=== PATIENT | female | born 1970 | race Caucasian/White ===

== ENCOUNTER 2017-03-19 20:23 | Emergency (ER) | payer BC ==
[2017-03-19 21:13] VITALS: BP 132/68
[2017-03-19] MEDS ORDERED: Ibuprofen TAB* 600 MG PO ONE (21:29)
--- NOTE | 2017-03-19 23:06 | UC ---
Back Pain HPI - HPI Summary HPI Summary: Lifted trash at home tonight and twisted wrong and has left upper back pain. Did not hear a snap or crack. Hx prior wrist fracture. No SOB, no hemoptysis. Severe pain. - History of Current Complaint Chief Complaint: UCBackPain Stated Complaint: BACK PAIN Time Seen by Provider: 03/19/17 23:06 Hx Obtained From: Patient Onset/Duration: Sudden Onset, Lasting Hours, Still Present Timing: Constant Severity Initially: Severe Severity Currently: Severe Pain Intensity: 8 Pain Scale Used: 0-10 Numeric Back Pain: Is Discrete @ - left post ribs, upper Character: Sharp Aggravating: Movement Alleviating: Nothing Associated Signs And Symptoms: Negative: Bruising, Fever - Allergies/Home Medications Allergies/Adverse Reactions: Allergies Allergy/AdvReac Type Severity Reaction Status Date / Time Amoxicillin Allergy Intermediate RASH Verified 03/19/17 21:06 SWELLING Morphine and Related AdvReac Hallucinati Verified 03/19/17 21:06 ons Home Medications: Home Medications Amphetamine-Dextroamphetamine [Adderall 30 mg-] 1 tab PO DAILY 03/19/17 [ History Confirmed 03/19/17] PMH/Surg Hx/FS Hx/Imm Hx Previously Healthy: Yes - Surgical History Surgical History: Yes Surgery Procedure, Year, and Place: LT SHOULDER SURGERY X3. APPENDECTOMY. HYSTERECTOMY - Family History Known Family History: Positive: Hypertension - Social History Occupation: Employed Full-time Alcohol Use: Occasionally Substance Use Type: None Smoking Status (MU): Light Every Day Tobacco Smoker Amount Used/How Often: 1/2 pack/day Review of Systems Constitutional: Negative Skin: Negative Eyes: Negative ENT: Negative Respiratory: Negative Cardiovascular: Negative Gastrointestinal: Negative Genitourinary: Negative Motor: Negative Neurovascular: Negative Musculoskeletal: Arthralgia Neurological: Negative Psychological: Negative All Other Systems Reviewed And Are Negative: Yes Physical Exam Triage Information Reviewed: Yes Appearance: Well-Appearing, Well-Nourished, Pain Distress Vital Signs: Initial Vital Signs Temp 98.4 F 03/19/17 21:08 Pulse 73 03/19/17 21:08 Resp 16 03/19/17 21:08 BP 132/68 03/19/17 21:08 Pulse Ox 100 03/19/17 21:08 Vital Signs Reviewed: Yes Eyes: Positive: Conjunctiva Clear ENT: Positive: Hearing grossly normal. Negative: Muffled/hoarse voice Neck: Positive: Supple, Nontender, No Lymphadenopathy Respiratory: Positive: Lungs clear, Normal breath sounds, No respiratory distress Cardiovascular: Positive: RRR, No Murmur, Pulses Normal, Brisk Capillary Refill Musculoskeletal: Positive: Strength Intact, ROM Intact, Other: - pain left post ribs inf to scapular Neurological Exam: Normal Psychological Exam: Normal Skin Exam: Normal Back Pain Course/Dx - Course Course Of Treatment: xray-unofficial reading-no rib fx. CXR neg - Differential Dx/Diagnosis Differential Diagnosis/HQI/PQRI: Fracture, Strain, Sprain Provider Diagnoses: left post rib contusion Discharge - Discharge Plan Condition: Stable Disposition: HOME Prescriptions: Cyclobenzaprine TAB* [Flexeril 10 MG TAB*] 10 mg PO TID PRN #20 tab PRN Reason: Pain traMADol TAB* [Ultram*] 50 mg PO Q6HR PRN #10 tab MDD 4 PRN Reason: Pain Patient Education Materials: Rib Contusion (ED) Forms: *Work Release Referrals: Rissa Harley NP [Primary Care Provider] -
[2017-03-19] MEDS ORDERED: Cyclobenzaprine TAB* 10 MG PO ONE (23:12)
[2017-03-19] MEDS ORDERED: traMADol TAB* 50 MG PO ONE (23:12)
--- NOTE | 2017-03-20 07:31 | RAD ---
INDICATION: Left posterior paraspinal rib pain after twisting injury COMPARISON: None. TECHNIQUE: 7 views of the left ribs as well as AP views of the chest were obtained. FINDINGS: No fracture or significant focal osseous abnormality is seen. No pneumothorax is apparent. IMPRESSION: NO EVIDENCE FOR FRACTURE, IF THE PATIENT'S SYMPTOMS PERSIST RECOMMEND FOLLOW-UP IMAGING.
== END 2017-03-19 23:59 | disposition home or self-care (01) ==
LOC: UCEAST 20:23
DX: S20.212A Contusion of left front wall of thorax, initial encounter (principal); X50.1XXA Overexertion from prolonged static or awkward postures, initial encounter; F17.210 Nicotine dependence, cigarettes, uncomplicated; Z88.3 Allergy status to other anti-infective agents; Z88.5 Allergy status to narcotic agent
CPT/HCPCS: 99212; A9270-GY; G0463

== ENCOUNTER 2017-12-17 17:21 | Emergency (ER) | payer BC ==
--- NOTE | 2017-12-17 18:40 | RAD ---
INDICATION: Right upper quadrant pain COMPARISON: February 22, 2014 TECHNIQUE: Longitudinal and transverse scans of the right upper quadrant were obtained. Doppler interrogation of the hepatic and portal venous system was performed. FINDINGS: Liver: The liver is normal in size and echogenicity. There are no focal masses. The liver measures 12.9 cm in cephalocaudal dimension. Vessels: There is normal hepatic and portal venous flow. Bile ducts: There is no evidence of intrahepatic or extrahepatic ductal dilatation. The common duct measures 0.3 cm. Gallbladder: The gallbladder wall appears thickened. This may be related to fact that the patient was not n.p.o. or this could be related to chronic gallbladder changes. There is no pericholecystic fluid. Pancreas: The visualized pancreas appears normal Right kidney: The right kidney is normal in size and echogenicity. There are no masses or calculi. There is no evidence of hydronephrosis. The right kidney measures 9.4 x 3.6 x 4.1 cm. IVC and aorta: The aorta and superior vena cava appear normal. Fluid: There is no ascites. Other: None. IMPRESSION: CONTRACTED GALLBLADDER. CONSIDER FOLLOW-UP IMAGING WHEN THE PATIENT IS N.P.O.
[2017-12-17 19:12] LABS: ABS Basophils 0.1 10^3/ul (0-0.2); ABS Eosinophils 0.1 10^3/ul (0-0.6); ABS Lymphocytes 4.2 10^3/ul (1.0-4.8); ABS Monocytes 0.6 10^3/ul (0-0.8); ABS Neutrophils 3.2 10^3/ul (1.5-7.7); ABS Nucleated RBC 0 10^3/ul; Eosinophil % 1.3 % (0-6); Hematocrit 40 % (35-47); Hemoglobin 13.4 g/dl (12.0-16.0); Lymphocyte % 51.4 % (25-47); Mean Corpuscular HGB Conc 34 g/dl (31-36); Mean Corpuscular Hemoglobin 30 pg (27-31); Mean Corpuscular Volume 90 fL (80-97); Mean Platelet Volume 8 um3 (7.4-10.4); Nucleated Red Blood Cells % 0.1; Platelet Count 300 10^3/ul (150-450); Red Blood Count 4.43 10^6/ul (4.0-5.4); Red Cell Distribution Width 13 % (10.5-15); White Blood Count 8.1 10^3/ul (3.5-10.8)
[2017-12-17 19:20] LABS: Urine Appearance Clear; Urine Blood Negative (Negative); Urine Color Yellow; Urine Ketones Negative (Negative); Urine Protein Negative (Negative); Urine Urobilinogen Negative (Negative)
[2017-12-17 19:21] LABS: INR 0.82 (0.77-1.02)
[2017-12-17 19:23] LABS: EGFR Non-African American 85.1 (>60)
[2017-12-17 19:48] VITALS: BP 134/88
--- NOTE | 2017-12-17 21:28 | ED ---
Chuy Marquez Thomas, scribed for Chuy Edwards MD on 12/17/17 at 1956 . Abdominal Pain/Female - HPI Summary HPI Summary: The patient is a 47 year old female presenting to the emergency department complaining of RUQ pain. The pain is aggravated by food. The patient denies fever and chills. Past medical history includes GERD and she is on Prilosec. Past surgical history includes appendectomy. - History of Current Complaint Chief Complaint: EDAbdPain Stated Complaint: UPPER RT ABD PAIN Time Seen by Provider: 12/17/17 17:31 Hx Obtained From: Patient Onset/Duration: Still Present Timing: Constant Severity Currently: Mild Pain Intensity: 0 Location: Discrete At: RUQ Aggravating Factor(s): Food Alleviating Factor(s): Nothing Associated Signs and Symptoms: Positive: Negative - chills. Negative: Fever Allergies/Adverse Reactions: Allergies Allergy/AdvReac Type Severity Reaction Status Date / Time amoxicillin Allergy Severe Vomiting Verified 12/17/17 17:29 hydromorphone [From Dilaudid] Allergy Severe Hallucinati Verified 12/17/17 17:29 ons morphine Allergy Severe Hallucinati Verified 12/17/17 17:29 ons PMH/Surg Hx/FS Hx/Imm Hx Endocrine/Hematology History: Reports: Hx Diabetes - TYPE II, diet controlled Cardiovascular History: Reports: Other Cardiovascular Problems/Disorders - MITRAL VALVE PROLAPSE, MURMUR Denies: Hx Hypertension, Hx Pacemaker/ICD Respiratory History: Reports: Hx Asthma GI History: Reports: Hx Gastroesophageal Reflux Disease Sensory History: Denies: Hx Hearing Aid Psychiatric History: Reports: Hx Anxiety, Hx Attention Deficit Hyperactivity Disorder, Hx Depression Denies: Hx Panic Disorder - Surgical History Surgery Procedure, Year, and Place: LT SHOULDER SURGERY X3. APPENDECTOMY. HYSTERECTOMY Infectious Disease History: No Infectious Disease History: Denies: Traveled Outside the [place] in Last 30 Days - Family History Known Family History: Positive: Hypertension - Social History Alcohol Use: Occasionally Substance Use Type: Reports: None Hx Tobacco Use: Yes Smoking Status (MU): Light Every Day Tobacco Smoker Amount Used/How Often: 1/2 pack/day Review of Systems Negative: Fever, Chills Positive: Abdominal Pain All Other Systems Reviewed And Are Negative: Yes Physical Exam - Summary Physical Exam Summary: General: well-appearing, no pain distress Skin: warm, color reflects adequate perfusion, dry Head: normal Eyes: EOMI, HASMUKH ENT: normal Neck: supple, nontender Respiratory: CTA, breath sounds present Cardiovascular: RRR Abdomen: Soft. She is tender to the RUQ. Bowel: hyperactive Musculoskeletal: normal, strength/ROM intact Neurological: normal, sensory/motor intact, A&O x3 Psychological: affect/mood appropriate Triage Information Reviewed: Yes Vital Signs On Initial Exam: Initial Vitals Temp Pulse Resp BP Pulse Ox 98.0 F 80 18 130/79 99 12/17/17 17:23 12/17/17 17:23 12/17/17 17:23 12/17/17 17:23 12/17/17 17:23 Vital Signs Reviewed: Yes Diagnostics - Vital Signs Vital Signs Temp Pulse Resp BP Pulse Ox 12/17/17 19:47 97.9 F 86 16 134/88 98 12/17/17 17:23 98.0 F 80 18 130/79 99 - Laboratory Lab Results: Lab Results 12/17/17 12/17/17 12/17/17 Range/Units 18:38 18:38 18:38 WBC 8.1 (3.5-10.8) 10^3/ul RBC 4.43 (4.0-5.4) 10^6/ul Hgb 13.4 (12.0-16.0) g/dl Hct 40 (35-47) % MCV 90 (80-97) fL MCH 30 (27-31) pg MCHC 34 (31-36) g/dl RDW 13 (10.5-15) % Plt Count 300 (150-450) 10^3/ul MPV 8 (7.4-10.4) um3 Neut % (Auto) 39.3 (38-83) % Lymph % (Auto) 51.4 H (25-47) % [place] % (Auto) 7.0 (0-7) % Eos % (Auto) 1.3 (0-6) % Baso % (Auto) 1.0 (0-2) % Absolute Neuts (auto) 3.2 (1.5-7.7) 10^3/ul Absolute Lymphs (auto) 4.2 (1.0-4.8) 10^3/ul Absolute Monos (auto) 0.6 (0-0.8) 10^3/ul Absolute Eos (auto) 0.1 (0-0.6) 10^3/ul Absolute Basos (auto) 0.1 (0-0.2) 10^3/ul Absolute Nucleated RBC 0 10^3/ul Nucleated RBC % 0.1 INR (Anticoag Therapy) 0.82 (0.77-1.02) APTT 33.7 (26.0-36.3) seconds Sodium 136 (133-145) mmol/L Potassium 3.6 (3.5-5.0) mmol/L Chloride 104 (101-111) mmol/L Carbon Dioxide 25 (22-32) mmol/L Anion Gap 7 (2-11) mmol/L BUN 13 (6-24) mg/dL Creatinine 0.73 (0.51-0.95) mg/dL Est GFR ( Amer) 109.4 (>60) Est GFR (Non-Af Amer) 85.1 (>60) BUN/Creatinine Ratio 17.8 (8-20) Glucose 93 (70-100) mg/dL Lactic Acid (0.5-2.0) mmol/L Calcium 9.6 (8.6-10.3) mg/dL Total Bilirubin 0.30 (0.2-1.0) mg/dL AST 14 (13-39) U/L ALT 10 (7-52) U/L Alkaline Phosphatase 82 (34-104) U/L C-Reactive Protein 2.43 (< 5.00) mg/L Total Protein 7.1 (6.4-8.9) g/dL Albumin 4.3 (3.2-5.2) g/dL Globulin 2.8 (2-4) g/dL Albumin/Globulin Ratio 1.5 (1-3) Lipase 60 (11.0-82.0) U/L Urine Color Urine Appearance Urine pH (5-9) Ur Specific [place] (1.010-1.030) Urine Protein (Negative) Urine Ketones (Negative) Urine Blood (Negative) Urine Nitrate (Negative) Urine Bilirubin (Negative) Urine Urobilinogen (Negative) Ur Leukocyte Esterase (Negative) Urine Glucose (Negative) 12/17/17 12/17/17 Range/Units 18:38 18:38 WBC (3.5-10.8) 10^3/ul RBC (4.0-5.4) 10^6/ul Hgb (12.0-16.0) g/dl Hct (35-47) % MCV (80-97) fL MCH (27-31) pg MCHC (31-36) g/dl RDW (10.5-15) % Plt Count (150-450) 10^3/ul MPV (7.4-10.4) um3 Neut % (Auto) (38-83) % Lymph % (Auto) (25-47) % [place] % (Auto) (0-7) % Eos % (Auto) (0-6) % Baso % (Auto) (0-2) % Absolute Neuts (auto) (1.5-7.7) 10^3/ul Absolute Lymphs (auto) (1.0-4.8) 10^3/ul Absolute Monos (auto) (0-0.8) 10^3/ul Absolute Eos (auto) (0-0.6) 10^3/ul Absolute Basos (auto) (0-0.2) 10^3/ul Absolute Nucleated RBC 10^3/ul Nucleated RBC % INR (Anticoag Therapy) (0.77-1.02) APTT (26.0-36.3) seconds Sodium (133-145) mmol/L Potassium (3.5-5.0) mmol/L Chloride (101-111) mmol/L Carbon Dioxide (22-32) mmol/L Anion Gap (2-11) mmol/L BUN (6-24) mg/dL Creatinine (0.51-0.95) mg/dL Est GFR ( Amer) (>60) Est GFR (Non-Af Amer) (>60) BUN/Creatinine Ratio (8-20) Glucose (70-100) mg/dL Lactic Acid 1.1 (0.5-2.0) mmol/L Calcium (8.6-10.3) mg/dL Total Bilirubin (0.2-1.0) mg/dL AST (13-39) U/L ALT (7-52) U/L Alkaline Phosphatase (34-104) U/L C-Reactive Protein (< 5.00) mg/L Total Protein (6.4-8.9) g/dL Albumin (3.2-5.2) g/dL Globulin (2-4) g/dL Albumin/Globulin Ratio (1-3) Lipase (11.0-82.0) U/L Urine Color Yellow Urine Appearance Clear Urine pH 6.0 (5-9) Ur Specific [place] 1.010 (1.010-1.030) Urine Protein Negative (Negative) Urine Ketones Negative (Negative) Urine Blood Negative (Negative) Urine Nitrate Negative (Negative) Urine Bilirubin Negative (Negative) Urine Urobilinogen Negative (Negative) Ur Leukocyte Esterase Negative (Negative) Urine Glucose Negative (Negative) Result Diagrams: 12/17/17 18:38 12/17/17 18:38 Lab Statement: Any lab studies that have been ordered have been reviewed, and results considered in the medical decision making process. - Additional Comments Diagnostic Additional Comments: Ultrasound Gallbladder Interpreted by radiologist. IMPRESSION: CONTRACTED GALLBLADDER. CONSIDER FOLLOW-UP IMAGING WHEN THE PATIENT IS N.P.O. Dr. Edwards has reviewed this report. Abdominal Pain Fem Course/Dx - Course Course Of Treatment: DISCUSSED RESULTS WITH PATIENT. WE DISCUSSED GETTING A FASTING GB U/S WITH PMD. PATIENT IS ON OMEPRAZOLE. RETURN IF WORSE. - Diagnoses Provider Diagnoses: Epigastric pain Discharge - Discharge Plan Condition: Stable Disposition: HOME Patient Education Materials: Abdominal Pain (ED), Epigastric Pain (ED) Referrals: Rissa Harley NP [Primary Care Provider] - Additional Instructions: FOLLOW UP WITH YOUR DOCTOR. THE GALL BLADDER ULTRASOUND WAS INCONCLUSIVE BECAUSE YOU HAD EATEN RECENTLY. DISCUSS HAVING THE ULTRASOUND REPEATED WHEN FASTING BY YOUR PRIMARY CARE PROVIDER. RETURN TO THE EMERGENCY DEPARTMENT FOR ANY WORSENING OF YOUR CONDITION OR QUESTIONS OR CONCERNS. YOUR BLOOD PRESSURE WAS ELEVATED TODAY; FOLLOW UP WITH YOUR PRIMARY CARE DOCTOR WITHIN THE NEXT 1 WEEK. The documentation as recorded by the Chuy byrd Thomas accurately reflects the service I personally performed and the decisions made by me, Chuy Edwards MD.
== END 2017-12-17 19:47 | disposition home or self-care (01) ==
LOC: ED 17:21
DX: R10.13 Epigastric pain (principal); E11.9 Type 2 diabetes mellitus without complications; F17.210 Nicotine dependence, cigarettes, uncomplicated
CPT/HCPCS: 36415; 76705; 80053; 81003; 83605; 83690; 85025; 85610; 85730; 86140; 99282

== ENCOUNTER 2018-01-15 11:30 | Emergency (ER) | payer BC ==
--- OUTSIDE RECORDS SUMMARY | 2018-01-15 11:37 | XMS REPORT ---
:1970 External Reference #:[id number] Author Organization [facility] Address [address] [place] [address] Phone [phone] Care Team Providers Name Role Phone Sofía Robbins NP Care Team Information Inclusion Teacher Unavailable Payers Type Date Identification Numbers Payment Provider Subscriber Commercial Effective: Policy Number: [id number] Emmie Walton 2013 Expires: 2015 Group Name: Miguel Ángel Ppo [address] PayID: [id number] ELEANOR Kim [id number] Medigap Part B Expires: Policy Number: [employer] Dustin Gilmore 2017 [id number] [facility]([place] Group Name: [place] [address] PayID: [id number] [place] [address] Medigap Part B Effective: 2017 Policy Number: Emmie Walton [id number] Group Name: [employer] [place] 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 Occupation [employer] [facility] [place] [facility] Cigarette Use Smokes 1/2 Packs Daily ETOH Use Drinks Once Monthly Mixed Drink 1 Recreational Drug Use Denies Drug Use Smoking Patient is a current smoker, smokes every day Daily Caffeine Drinks 10 Cups Decaf Coffee Allergies, Adverse Reactions, Alerts Date Description Reaction Status Severity Comments 11/24/2007 Penicillin active 11/24/2007 Morphine active hallucinations 11/24/2007 Demerol active hallucinations Medications Medication Date Status Form Strength Qnty SIG Indications Ordering Provider Ondansetron 12/09/ Active Tablets 4mg 30tab dissolve 1 Rissa 2016 Dispers s tab by Morris, mouth three SOIL SUR[employer]YOR-C times a day as needed nausea Naproxen 11/13/ Active Tablets 500mg 60tab take one Rissa 2016 s tablet by Morris mouth twice SOIL SUR[employer]OR-C a day with food Adderall XR 08/22/ Active Caps ER 20mg 30cap 1 by mouth Rissa 2015 24HR s every day BEBE Harley-C Diflucan 05/21/ Active Tablets 150mg 2tabs take 1 Rissa 2015 tablet now Morris, may repeat [employer]IL [employer]OR-C in 1 week if needed Sucralfate / Active Tablets 1gm four times Unknown 0000 a day as needed heartburn Prozac 11/13/ Hx Capsules 10mg 30cap take one Rissa 2016 - s capsule by Morris, 12/22/ mouth daily [employer]IL [employer]OR-C 2017 Azithromycin 11/13/ Hx Tablets 250mg 6tabs take 2 J01.90 Rissa 2016 - tablets Morris, 12/22/ today then [employer]OR-C 2018 1 tablet daily for the next 4 days Bupropion HCL ER 05/29/ Hx Tablets 150mg 30tab 1 by mouth Rissa (XL) 2015 - ER 24HR s every day Morris 11/13/ SOIL [employer]OR-C 2016 Pantoprazole 04/26/ Hx Solution 40mg 60uni take one Rissa Sodium 2015 - Rec ts tab by Morris, 12/22/ mouth twice [employer]OR-C 2017 daily. Adderall XR 04/26/ Hx Caps ER 30mg 30cap 1 by mouth Rissa 2015 - 24HR s daily for Morris 08/22/ add [employer]IL [employer]OR-C 2015 Cymbalta 04/26/ Hx Caps DR 30mg 30cap take one F32.9 Rissa 2015 - Part s capsules by Morris, 05/29/ mouth every [employer]-C 2015 day Pantoprazole 04/26/ Hx Tablets 40mg 30tab 1 by mouth Rissa Sodium 2015 - DR s twice a Morris 08/21/ day [employer] [employer]-C 2015 Pantoprazole 04/26/ Hx Solution 40mg 30uni Take one Morris, Sodium 2015 - Rec ts tab by Rissa 08/21/ mouth twice F.N.P.C. 2015 daily. Onetouch Ultra 04/03/ Hx Kit w/Device 1unit to test Rissa Mini 2015 - s finger Morris, 11/13/ stick SOIL [employer]OR-C 2016 glucose Onetouch 04/03/ Hx Misc 100un for FS Rissa Ultrasoft Lancets 2016 - its glucose Morris, 11/13/ once daily [employer]IL [employer]OR-C 2017 Onetouch Ultra 04/03/ Hx Strips 100un use for Rissa Del Rosario 2015 - its testing Morris, 11/13/ blood sugar [employer]OR-C 2017 twice a day or as needed Imitrex 04/02/ Hx Tablets 25mg 14tab take 1 R51 Rissa 2015 - s tablet by Morris, 12/22/ mouth at [facility]IL [employer]OR-C 2017 the onset of a headache, may repeat the dose in 2 hours if needed Cyclobenzaprine 04/02/ Hx Tablets 5mg 30tab 1-2 by R51 Rissa HCL 2015 - s mouth three Morris, 11/13/ times a day SOIL [employer]OR-C 2016 for muscle spasm, may cause drowsiness No Active 02/13/ Hx Unknown Medications 2014 - 2014 Cymbalta 02/13/ Hx Caps DR 20mg 30cap take 1 by F32.9 Rissa 2014 - Part s mouth every Morris, 04/26/ day SOIL [employer]YOR-C 2015 No Active 04/26/ Hx Unknown Medications 2013 - 2013 Meloxicam 04/26/ Hx Tablets 7.5mg 30tab 1 by mouth Rissa 2013 - s daily for Morris, 02/13/ pain, take [employer]IL [employer]OR-C 2014 with food Hydroxyzine HCL 04/26/ Hx Tablets 25mg 45tab 1-2 by Rissa 2013 - s mouth q hs Morris, 02/13/ as needed [employer]OR-C 2014 insomnia Bactrim DS 03/27/ Hx Tablets 800-160mg 6tabs 1 tablet Rissa 2011 - bid x 3 Morris, 04/26/ days [employer]OR-C 2013 Cyclobenzaprine 02/03/ Hx Tablets 5mg 30tab Take 1 - 2 Rissa HCL 2011 - s tablets by Morris, 04/26/ mouth 3 [employer]IL [employer]OR-C 2014 times per day for muscle spasm with pain Ketorolac 02/03/ Hx Tablets 10mg 20tab Take 1 Rissa Tromethamine 2011 - tablet by Morris, 04/26/ mouth every [employer]IL [employer]YOR-C 2013 6 hours as needed for pain Methocarbamol 01/12/ Hx Tablets 500mg 30thi 1 po qid as 724.2 Rissa 2011 - rty needed for Morris, 04/26/ muscle [employer]IL [employer]OR-C 2014 spasm Sertraline HCL 01/12/ Hx Tablets 25mg 30tab Take 1 300.02 Rissa 2011 - s tablet po Morris, 04/26/ daily [facility]IL [employer]OR-C 2014 Cipro 11/24/ Hx Ning 2007 - A. 11/24/ Ness, 2007 F.N.P.C. Tylenol/Codeine 11/24/ Hx Tablets #3 10tab 1-2 tabs po Ning #3 2007 - s every 4 A. /05/ hours prn Ness, 2007 severe ear F.N.P.C. aimee Effexor XR 11/24/ Hx Caps ER 37.5mg 21cap 1 PO Qd for 300.02 Ning 2007 - 24HR s one week A. 12/22/ then Ness, 2007 increase to F.N.P.C. the Effexor XR 75 mg Glucometer Elite 05/05/ Hx 1unit Use as Rissa EX-L 2001 - s Directed Soboroff, 11/24/ M.D. 2008 Lancets 05/05/ Hx 100un Use as Rissa 2001 - Directed Soboroff, 11/24/ M.D. 2008 Glucometer Elite 04/27/ Hx 50uni Use as Rissa EX-L Test Strips 2001 - ts Directed Soboroff, 04/26/ M.D. 2013 Effexor XR 01/28/ Hx Capsules 150mg 30cap One qd Ning 2001 - s A. 11/24/ Ness, 2007 F.N.P.C. Paxil 12/29/ Hx Tablets 20mg 45tab One And /2 Ning 2001 - s Tabs qd A. 01/28/ Ness, 2001 F.N.P.C. Lopressor / Hx 25mg one po qd 785.1 Unknown 0000 - 2013 Adderall XR / Hx Caps ER 10mg 60cap take one Rissa 0000 - 24HR s capsule Morris, 04/26/ twice a SOIL SUR[employer]YOR-C 2015. Zonisamide / Hx Capsules 25mg 1 up to 4 Unknown 0000 - by mouth 11/13/ every night 2017 at bedtime as directed for migraines Immunizations CPT Code Status Date Vaccine Lot # [id number] Given 09/03/2017 Influenza Virus Vaccine, Quadrivalent, 3 Yr > Quad, Preserv Free [id number] Given 07/25/2016 Influenza Virus Vaccine, Quadrivalent, 3 Yr > Quad, Preserv Free [id number] Given 06/20/2015 Influenza Virus Vaccine, Quadrivalent, 3 Yr > Quad, Preserv Free Vital Signs Date Vital Result Comment 12/22/2017 BP Systolic 112 mmHg BP Diastolic 83 mmHg Heart Rate 72 /min Body Temperature 97.8 F O2 % BldC Oximetry 98 % 11/13/2016 Weight 140.00 lb Weight in kg's 63.504 BP Systolic 110 mmHg BP Diastolic 72 mmHg Heart Rate 73 /min Body Temperature 97.5 F Respiratory Rate 16 /min O2 % BldC Oximetry 98 % 04/02/2016 Weight 135.00 lb Weight in kg's 61.236 BP Systolic 110 mmHg BP Diastolic 98 mmHg Heart Rate 60 /min Height 62 inches 5'2" BMI (Body Mass Index) 24.7 kg/m2 03/15/2016 Weight 134.00 lb Weight in kg's 60.782 BP Systolic 110 mmHg BP Diastolic 70 mmHg Right Visual Acuity Distance 20/70 Left Visual Acuity Distance 20/40 Both Visual Acuity Distance 20/40 02/13/2015 Weight 134.00 lb Weight in kg's 60.782 BP Systolic 90 mmHg BP Diastolic 60 mmHg Heart Rate 68 /min 04/26/2014 Weight 130.00 lb Weight in kg's 58.968 BP Systolic 90 mmHg BP Diastolic 60 mmHg Heart Rate 72 /min Height 62 inches 5'2" BMI (Body Mass Index) 23.8 kg/m2 01/13/2012 Weight 128.00 lb Weight in kg's 58.061 BP Systolic 100 mmHg BP Diastolic 60 mmHg Heart Rate 88 /min 02/22/2008 Weight 129.00 lb Weight in kg's 58.514 BP Systolic 126 mmHg BP Diastolic 74 mmHg Heart Rate 78 /min Height 63.5 inches 5'3.50" BMI (Body Mass Index) 22.5 kg/m2 12/23/2007 Weight 151.00 lb Weight in kg's 68.494 BP Systolic 110 mmHg BP Diastolic 64 mmHg Heart Rate 74 /min Height 63.5 inches 5'3.50" BMI (Body Mass Index) 26.3 kg/m2 12/23/2007 Weight 126.00 lb Weight in kg's 57.154 BP Systolic 100 mmHg BP Diastolic 68 mmHg Heart Rate 62 /min Height 63.5 inches 5'3.50" BMI (Body Mass Index) 22.0 kg/m2 11/24/2007 Weight 126.00 lb Weight in kg's 57.154 BP Systolic 110 mmHg BP Diastolic 60 mmHg Heart Rate 68 /min Height 63.5 inches 5'3.50" BMI (Body Mass Index) 22.0 kg/m2 05/11/2002 Weight 120.50 lb BP Systolic 112 mmHg BP Diastolic 66 mmHg Heart Rate 88 /min 04/27/2002 Weight 117.00 lb BP Systolic 110 mmHg BP Diastolic 70 mmHg Heart Rate 60 /min Respiratory Rate 18 /min 01/28/2002 Weight 124.00 lb BP Systolic 112 mmHg BP Diastolic 72 mmHg Heart Rate 72 /min Respiratory Rate 20 /min Results Test Date Test Result H/L Range Note Laboratory test finding 12/17/2017 Lipase 60 U/L 11.0-82.0 C Reactive Protein 2.43 mg/L < 5.00 1 Comp Metabolic Panel 12/17/2017 Sodium 136 mmol/L 133-145 Potassium 3.6 mmol/L 3.5-5.0 Chloride 104 mmol/L 101-111 Co2 Carbon Dioxide 25 mmol/L 22-32 Anion Gap 7 mmol/L 2-11 Glucose 93 mg/dL 70-100 Blood Urea Nitrogen 13 mg/dL 6-24 Creatinine 0.73 mg/dL 0.51-0.95 BUN/Creatinine Ratio 17.8 8-20 Calcium 9.6 mg/dL 8.6-10.3 Total Protein 7.1 g/dL 6.4-8.9 Albumin 4.3 g/dL 3.2-5.2 Globulin 2.8 g/dL 2-4 Albumin/Globulin Ratio 1.5 1-3 Total Bilirubin 0.30 mg/dL 0.2-1.0 Alkaline Phosphatase 82 U/L 34-104 Alt 10 U/L 7-52 Ast 14 U/L 13-39 Egfr Non- 85.1 >60 Egfr 109.4 >60 2 Laboratory test finding 12/17/2017 Lactic Acid 1.1 mmol/L 0.5-2.0 3 Urinalysis Profile 12/17/2017 Urine Color Yellow Urine Appearance Clear Urine Specific [place] 1.010 1.010-1.030 Urine pH 6.0 5-9 Urine Urobilinogen Negative Negative Urine Ketones Negative Negative Urine Protein Negative Negative Urine Leukocytes Negative Negative Urine Blood Negative Negative Urine Nitrite Negative Negative Urine Bilirubin Negative Negative Urine Glucose Negative Negative Laboratory test finding 12/17/2017 Partial Thrombo Time 33.7 seconds 26.0 -36.3 PTT Inr/Protime 12/17/2017 Inr 0.82 0.77-1.02 CBC Auto Diff 12/17/2017 White Blood Count 8.1 10^3/uL 3.5-10.8 Red Blood Count 4.43 10^6/uL 4.0-5.4 Hemoglobin 13.4 g/dL 12.0-16.0 Hematocrit 40 % 35-47 Mean Corpuscular Volume 90 fL 80-97 Mean Corpuscular Hemoglobin 30 pg 27-31 Mean Corpuscular HGB Conc 34 g/dL 31-36 Red Cell Distribution Width 13 % 10.5-15 Platelet Count 300 10^3/uL 150-450 Mean Platelet Volume 8 um3 7.4-10.4 Abs Neutrophils 3.2 10^3/uL 1.5-7.7 Abs Lymphocytes 4.2 10^3/uL 1.0-4.8 Abs Monocytes 0.6 10^3/uL 0-0.8 Abs Eosinophils 0.1 10^3/uL 0-0.6 Abs Basophils 0.1 10^3/uL 0-0.2 Abs Nucleated RBC 0 10^3/uL Granulocyte % 39.3 % 38-83 Lymphocyte % 51.4 % High 25-47 Monocyte % 7.0 % 0-7 Eosinophil % 1.3 % 0-6 Basophil % 1.0 % 0-2 Nucleated Red Blood Cells % 0.1 Comp Metabolic Panel 02/13/2015 Sodium 135 mmol/L 133-145 Potassium 3.9 mmol/L 3.5-5.0 Chloride 103 mmol/L 101-111 Co2 Carbon Dioxide 26 mmol/L 22-32 Anion Gap 6 mmol/L 2-11 Glucose 88 mg/dL 70-100 Blood Urea Nitrogen 13 mg/dL 6-24 Creatinine 0.68 mg/dL 0.51-0.95 BUN/Creatinine Ratio 19.1 8-20 Calcium 9.6 mg/dL 8.6-10.3 Total Protein 7.1 g/dL 6.4-8.9 Albumin 4.6 g/dL 3.2-5.2 Globulin 2.5 g/dL 2-4 Albumin/Globulin Ratio 1.8 1-3 Total Bilirubin 0.30 mg/dL 0.2-1.0 Alkaline Phosphatase 79 U/L 34-104 Alt 12 U/L 7-52 Ast 15 U/L 13-39 Egfr Non- 93.6 >60 Egfr 120.3 >60 4 Laboratory test finding 02/13/2015 Magnesium 1.8 mg/dL Low 1.9-2.7 Vitamin B12 277 pg/mL 180-914 5 TSH (Thyroid Stimulating Horm) 0.91 IU/mL 0.34-5.60 T4 7.66 g/dL 6.09-12.23 Total T3 1.06 ng/mL 0.87-1.78 CBC Auto Diff 02/13/2015 White Blood Count 7.7 10^3/uL 4.8-10.8 Red Blood Count 4.44 10^6/uL 4.0-5.4 Hemoglobin 14.3 g/dL 12.0-16.0 Hematocrit 42 % 35-47 Mean Corpuscular Volume 95 fL 80-97 Mean Corpuscular Hemoglobin 32 pg High 27-31 Mean Corpuscular HGB Conc 34 g/dL 31-36 Red Cell Distribution Width 13 % 10.5-15 Platelet Count 292 10^3/uL 150-450 Mean Platelet Volume 10 um3 7.4-10.4 Abs Neutrophils 3.0 10^3/uL 1.5-7.7 Abs Lymphocytes 4.1 10^3/uL 1.0-4.8 Abs Monocytes 0.5 10^3/uL 0-0.8 Abs Eosinophils 0.1 10^3/uL 0-0.6 Abs Basophils 0 10^3/uL 0-0.2 Abs Nucleated RBC 0.01 10^3/uL Granulocyte % 39.2 % 38-83 Lymphocyte % 52.8 % High 25-47 Monocyte % 6.1 % 1-9 Eosinophil % 1.3 % 0-6 Basophil % 0.6 % 0-2 Nucleated Red Blood Cells % 0.2 Laboratory test finding 02/22/2014 Pathologist Review (SEE NOTE) 6 Manual Differential 02/22/2014 Neutrophil % 39 % 38-83 Lymphocytes % 41 % 25-47 Monocytes % 6 % 0-13 Reactive Lymph % 14 % High 0-6 RBC Morphology Normal Normal CBC Auto Diff 02/22/2014 White Blood Count 8.5 10^3/uL 4.8-10.8 Red Blood Count 4.41 10^6/uL 4.0-5.4 Hemoglobin 13.9 g/dL 12.0-16.0 Hematocrit 41 % 35-47 Mean Corpuscular Volume 93 fL 80-97 Mean Corpuscular Hemoglobin 32 pg High 27-31 Mean Corpuscular HGB Conc 34 g/dL 31-36 Red Cell Distribution Width 13 % 10.5-15 Platelet Count 279 10^3/uL 150-450 Mean Platelet Volume 9 um3 7.4-10.4 Abs Neutrophils 3.3 10^3/uL 1.5-7.7 Abs Lymphocytes 4.5 10^3/uL 1.0-4.8 Abs Monocytes 0.5 10^3/uL 0-0.8 Abs Eosinophils 0.1 10^3/uL 0-0.6 Abs Basophils 0.1 10^3/uL 0-0.2 Abs Nucleated RBC 0.02 10^3/uL Laboratory test finding 02/22/2014 Lipase 39 U/L 11.0-82.0 C Reactive Protein 2.15 mg/L < 5.00 7 Comp Metabolic Panel 02/22/2014 Sodium 134 mmol/L 133-145 Potassium 3.9 mmol/L 3.7-5.6 Chloride 101 mmol/L 101-111 Co2 Carbon Dioxide 25 mmol/L 22-32 Anion Gap 8 mmol/L 2-11 Glucose 80 mg/dL 70-100 Blood Urea Nitrogen 16 mg/dL 6-24 Creatinine 0.77 mg/dL 0.51-0.95 BUN/Creatinine Ratio 20.8 High 8-20 Calcium 9.5 mg/dL 8.6-10.3 Total Protein 6.8 g/dL 6.4-8.9 Albumin 4.4 g/dL 3.2-5.2 Globulin 2.4 g/dL 2-4 Albumin/Globulin Ratio 1.8 1-3 Total Bilirubin 0.30 mg/dL 0.2-1.0 Alkaline Phosphatase 76 U/L 34-104 Alt 12 U/L 7-52 Ast 17 U/L 13-39 Egfr Non- 81.4 >60 Egfr 104.7 >60 8 Urinalysis 02/22/2014 Urine Color Yellow Urine Appearance Clear Urine Specific [place] 1.010 1.010-1.030 Urine Esterase Negative Negative Urine Nitrate Negative Negative Urine Urobilinogen Negative E.U./dL Negative Urine Protein Negative mg/dL Negative Urine pH 6.0 5-9 Urine Blood Negative Negative Urine Ketones Negative mg/dL Negative Urine Bilirubin Negative Negative Urine Glucose Negative mg/dL Negative CBC Auto Diff 06/01/2013 White Blood Count 10.2 10^3/uL 4.8-10.8 Red Blood Count 4.47 10^6/uL 4.0-5.4 Hemoglobin 13.8 g/dL 12.0-16.0 Hematocrit 43 % 35-47 Mean Corpuscular Volume 95 fL 80-97 Mean Corpuscular Hemoglobin 31 pg 27-31 Mean Corpuscular HGB Conc 33 g/dL 31-36 Red Cell Distribution Width 13 % 10.5-15 Platelet Count 305 10^3/uL 150-450 Mean Platelet Volume 9 um3 7.4-10.4 Abs Neutrophils 6.2 10^3/uL 1.5-7.7 Abs Lymphocytes 2.5 10^3/uL 1.0-4.8 Abs Monocytes 1.0 10^3/uL High 0-0.8 Abs Eosinophils 0.1 10^3/uL 0-0.6 Abs Basophils 0.4 10^3/uL High 0-0.2 Abs Nucleated RBC 0.01 10^3/uL Manual Differential 06/01/2013 Neutrophil % 60 % 38-83 Lymphocytes % 28 % 25-47 Monocytes % 6 % 0-13 Eosinophils % 1 % 0-6 Reactive Lymph % 5 % 0-6 RBC Morphology Normal Normal Comp Metabolic Panel 06/01/2013 Sodium 138 mmol/L 133-145 Potassium 3.7 mmol/L 3.5-5.0 Chloride 103 mmol/L 101-111 Co2 Carbon Dioxide 27.0 mmol/L 22-32 Anion Gap 8.0 mmol/L 2-11 Glucose 94 mg/dL 70-100 Blood Urea Nitrogen 20 mg/dL 6-24 Creatinine 0.90 mg/dL 0.50-1.40 BUN/Creatinine Ratio 22.2 High 8-20 Calcium 9.9 mg/dL 8.1-9.9 Total Protein 7.6 g/dL 6.2-8.1 Albumin 4.2 g/dL 3.6-5.4 Globulin 3.4 g/dL 2-4 Albumin/Globulin Ratio 1.2 1-3 Total Bilirubin 0.5 mg/dL 0.4-1.5 Alkaline Phosphatase 74 U/L 30-110 Alt 17 U/L 14-54 Ast 23 U/L 12-42 Egfr Non- 68.0 >60 Egfr 87.5 >60 9 Laboratory test finding 06/01/2013 Magnesium 2.0 mg/dL 1.7-2.6 Troponin I 0 ng/mL 0-0.06 10 TSH (Thyroid Stimulating Horm) 1.04 miu/mL 0.34-5.60 CBC No Diff 10/01/2012 White Blood Count 10.6 10^3/uL 4.8-10.8 Red Blood Count 4.37 10^6/uL 4.0-5.4 Hemoglobin 13.8 g/dL 12.0-16.0 Hematocrit 42 % 35-47 Mean Corpuscular Volume 96 fL 80-97 Mean Corpuscular Hemoglobin 32 pg High 27-31 Mean Corpuscular HGB Conc 33 g/dL 31-36 Red Cell Distribution Width 13 % 10.5-15 Platelet Count 287 10^3/uL 150-450 Mean Platelet Volume 9 um3 7.4-10.4 Comp Metabolic Panel 10/01/2012 Sodium 138 mmol/L 133-145 Potassium 4.7 mmol/L 3.5-5.0 Chloride 105 mmol/L 101-111 Co2 Carbon Dioxide 26.0 mmol/L 22-32 Anion Gap 7.0 mmol/L 2-11 Glucose 75 mg/dL 70-100 Blood Urea Nitrogen 10 mg/dL 6-24 Creatinine 0.70 mg/dL 0.50-1.40 BUN/Creatinine Ratio 14.3 8-20 Calcium 9.3 mg/dL 8.1-9.9 Total Protein 6.6 g/dL 6.2-8.1 Albumin 4.1 g/dL 3.6-5.4 Globulin 2.5 g/dL 2-4 Albumin/Globulin Ratio 1.6 1-3 Total Bilirubin 0.7 mg/dL 0.4-1.5 Alkaline Phosphatase 73 U/L 30-110 Alt 16 U/L 14-54 Ast 21 U/L 12-42 Egfr Non- 91.3 >60 Egfr 117.5 >60 11 Laboratory test finding 10/01/2012 Hemoglobin A1c 5.8 % Less than 6.0 12 TSH (Thyroid Stimulating Horm) 0.88 MIU/ML 0.34-5.60 Urine Culture & 03/27/2012 M <SEE 13 Sensitivi NOTE> Urinalysis W/Microscopic 03/27/2012 Ua Color YELLOW Yellow Appearance-Urine CLEAR Clear Specific [place]-Ur 1.022 1.010-1.030 Esterase-Urine 1+ Negative Nitrite NEGATIVE Negative [id number] NEGATIVE Negative Protein-Urine NEGATIVE Negative PH-Urine 7.0 5-9 Blood-Urine NEGATIVE Negative Ketones-Urine NEGATIVE Negative Bilirubin-Ur NEGATIVE Negative Glucose-Urine NEGATIVE Negative WBC-Urine 5-10 0-5 RBC-Urine 0-2 0-2 Epith Cells-Ur FEW None Laboratory test 12/22/2009 Erythrocyte Sed Rate 6 MM/HR 0-15 finding Stat Laboratory test 12/12/2009 Troponin-I (TnI) 0 NG/ML 14 finding Laboratory test 12/12/2009 D Dimer Quantitative < 200 Less Than 230 finding CBC With Manual Diff 12/12/2009 White Blood Count 13.0 CUMM High 4.8-10.8 Stat Red Cell Count 4.90 CUMM 4.2-5.4 Hemoglobin 15.6 g/dL 12.0-16.0 Hematocrit 45 % 35-47 Mean Corpuscular Volume 92 um3 79-97 Mean Corpuscular Hemoglob 32 pg High 27-31 Mean Corpuscular HGB Cone 35 g/dL 32-36 Redcell Distribution WDTH 13 % 10.5-15 Platelet Count 274 CUMM 150-450 Mean Platelet Volume 8.1 um3 7.4-10.4 Polysegmented Neutrophil 89 % High 38-83 Lymphocyte 2 % Low 25-47 Monocyte 5 % 0-13 Atypical Lymph 4 % 0-6 Absolute Neutrophil Count 11.5 Anisocytosis SLIGHT Poikilocytosis SLIGHT Polychromasia SLIGHT CMP Stat 12/12/2009 Sodium 136 mmol/L 135-145 Potassium 4.1 mmol/L 3.5-5.0 Chloride 104 mmol/L 101-111 Co2 (Carbon Dioxide) 26.0 mmol/L 22-32 Anion Gap 6.0 mmol/L 2-11 15 Glucose 98 mg/dL 70-100 16 BUN 16 mg/dL 6-24 Creatinine 0.69 mg/dL 0.50-1.40 One Over Creatinine 1.40 BUN/Creatinine Ratio 23.2 High 8-20 Calcium 9.0 mg/dL 8.1-9.9 17 Total Protein 6.9 GM/DL 6.2-8.1 Albumin 4.1 GM/DL 3.6-5.4 Globulin 2.8 GM/DL 2-4 Albumin/Globulin Ratio 1.5 1-3 Bilirubin Total 1.1 mg/dL 0.4-1.5 18 Alkaline Phosphatase 66 U/L 30-110 Alt (SGPT) 17 U/L 14-54 Ast (Sgot) 23 U/L 12-42 eGFR Non- 100.2 > 60 eGFR 121.2 > 60 19 Laboratory test finding 12/12/2009 Amylase Stat 61 U/L 30-125 Lipase 29 U/L 22-51 Troponin-I (TnI) 0 NG/ML 20 TSH 0.50 MIU/ML 0.34-5.60 Urinalysis W/Microscopic 12/12/2009 Ua Color ARAIN Yellow Appearance-Urine CLEAR Clear Specific [place]-Ur 1.029 1.010-1.030 Esterase-Urine NEGATIVE Negative Nitrite NEGATIVE Negative [id number]-Eg-OXI NEGATIVE Negative Protein-Urine NEGATIVE Negative PH-Urine 6.0 5-9 Blood-Urine NEGATIVE Negative Ketones-Urine TRACE Negative Bilirubin-Ur NEGATIVE Negative Glucose-Urine NEGATIVE Negative WBC-Urine 0-2 0-5 RBC-Urine NONE SEEN 0-2 Mucus Urine MODERATE None Epith Cells-Ur MODERATE None Bacteria-Urine 1+ None Lipid Profile (Trig/Chol/HDL) 12/12/2009 Triglyceride 115 mg/dL 40-200 Cholesterol 165 mg/dL Less Than 200 21 High Density Lipoprotein 38 mg/dL Low 40-60 22 Cholesterol/HDL Ratio 4.34 AVERAGE 1-4.44 Low Density Lipoprotein 104 mg/dL High Less Than 100 23 Laboratory test 12/12/2009 C Reactive Protein < 0.5 Less Than finding mg/dL 0.5 Laboratory test 02/22/2008 Cytology 24 finding --- <SEE NOTE> Laboratory test 08/12/2002 Glucose By Moniter 109 78-110 finding Laboratory test 05/11/2002 Glucose By Moniter 148 High 78-110 finding Laboratory test 04/27/2002 Hemoglobin A1c 5.8 % 25 finding Comprehensive 04/27/2002 Albumin 4.1 g/dL 3.6 - 4.5 Metabolic SGPT (Alt) 16 U/L 7.0 - 42.0 Calcium 9.6 mg/dL 8.4 - 10.2 26 Carbon Dioxide 29 mmol/L 23.0 - 33.0 Chloride 106 mmol/L 98.0 - 107.0 Creatinine, Serum 0.8 mg/dL 0.5 - 1.2 Glucose 76 mg/dL 61.0 - 112.0 Alkaline Phosphatase 90 U/L 42.0 - 127.0 Potassium 4.5 mmol/L 3.4 - 5.0 Protein, Total 7.5 g/dL 6.2 - 8.0 Sodium 143 mmol/L 136.0 - 145.0 Sgot (Ast) 25 U/L 9.0 - 37.0 BUN 9 mg/dL 4.0 - 18.0 Bilirubin, Total 0.40 mg/dL 0.2 - 1.3 Laboratory test finding 04/27/2002 Glucose By Moniter 111 High 78-110 [id number] 01/20/2002 White Blood Count 8.6 Red Blood Count 4.47 3.8-5.3 Hemoglobin 14.6 11.8-15.8 Hematocrit 42 MCV (Corpuscular Volume) 95 82.0-98.0 MCH (Corpuscular Hemoglobin) 33 27.5-33.5 MCHC (Corpuscular Hemog Conc) 35 32.0-36.0 RDW 12 11.5-14.5 Platelet Count 298 130-400 MPV 8.3 6.5-10.5 Gran% 58.1 Lymphocytes 34.1 15.0-45.0 Monocytes 6.0 2.0-13.0 Eosinophils 0.8 0.0-6.0 Basophils 1.0 O.O-2.0 Absolute Lymphocytes 2.9 1.0-3.4 Absolute Monocytes 0.5 0.2-1.0 Absolute Grans 5.0 Absolute Eosinophils 0.1 0.0-0.5 Absolute Basophils 0.1 0.0-0.2 Laboratory test finding 01/20/2002 TSH (Thyroid Stimulating Horm) 0.9 1 Acute inflammation: >10.00 2 Because ethnic data is not always readily available, this report includes an eGFR for both -Americans and non- Americans. The National Kidney Disease Education Program (NKDEP) does not endorse the use of the MDRD equation for patients that are not between the ages of 18 and 70, are , have extremes of body size, muscle mass, or nutritional status, or are non- or non-. According to the National Kidney Foundation, irrespective of diagnosis, the stage of the disease is based on the level of kidney function: Stage Description GFR(mL/min/1.73 m(2)) 1 Kidney damage with normal or decreased GFR 90 2 Kidney damage with mild decrease in GFR 60-89 3 Moderate decrease in GFR 30-59 4 Severe decrease in GFR 15-29 5 Kidney failure <15 (or dialysis) 3 Specimen hemolyzed. Result may not be valid. [facility] Severe Sepsis and Septic Shock Management Bundle Measure requires all lactic acids initially measuring >2.0 mmol/L be repeated. 4 Because ethnic data is not always readily available, this report includes an eGFR for both -Americans and non- Americans. The National Kidney Disease Education Program (NKDEP) does not endorse the use of the MDRD equation for patients that are not between the ages of 18 and 70, are , have extremes of body size, muscle mass, or nutritional status, or are non- or non-. According to the National Kidney Foundation, irrespective of diagnosis, the stage of the disease is based on the level of kidney function: Stage Description GFR(mL/min/1.73 m(2)) 1 Kidney damage with normal or decreased GFR 90 2 Kidney damage with mild decrease in GFR 60-89 3 Moderate decrease in GFR 30-59 4 Severe decrease in GFR 15-29 5 Kidney failure <15 (or dialysis) 5 Normal Range 180 to 914 Indeterminate Range 145 to 180 Deficient Range <145 6 CBC and smear reviewed. Inverted PMN/lymph ratio noted. No blasts seen. Reactive lymphocytosis consistent with acute viral infection or reactive process. REVIEWED BY CRICKET HUITRON MD 7 Acute inflammation: >10.00 8 Because ethnic data is not always readily available, this report includes an eGFR for both -Americans and non- Americans. The National Kidney Disease Education Program (NKDEP) does not endorse the use of the MDRD equation for patients that are not between the ages of 18 and 70, are , have extremes of body size, muscle mass, or nutritional status, or are non- or non-. According to the [employer], irrespective of diagnosis, the stage of the disease is based on the level of kidney function: Stage Description GFR(mL/min/1.73 m(2)) 1 Kidney damage with normal or decreased GFR 90 2 Kidney damage with mild decrease in GFR 60-89 3 Moderate decrease in GFR 30-59 4 Severe decrease in GFR 15-29 5 Kidney failure <15 (or dialysis) 9 Because ethnic data is not always readily available, this report includes an eGFR for both -Americans and non- Americans. The National Kidney Disease Education Program (NKDEP) does not endorse the use of the MDRD equation for patients that are not between the ages of 18 and 70, are , have extremes of body size, muscle mass, or nutritional status, or are non- or non-. According to the National Kidney Foundation, irrespective of diagnosis, the stage of the disease is based on the level of kidney function: Stage Description GFR(mL/min/1.73 m(2)) 1 Kidney damage with normal or decreased GFR 90 2 Kidney damage with mild decrease in GFR 60-89 3 Moderate decrease in GFR 30-59 4 Severe decrease in GFR 15-29 5 Kidney failure <15 (or dialysis) 10 Reference Range and Interpretation: TnI (ng/mL) Interpretation Less Than 0.06 ng/mL Not supportive of diagnosis of SD 0.06 - 0.50 ng/mL Indeterminate: suggest serial studies if clinically indicated. Greater than 0.5 ng/mL Consistent with diagnosis of SD 11 Because ethnic data is not always readily available, this report includes an eGFR for both -Americans and non- Americans. The National Kidney Disease Education Program (NKDEP) does not endorse the use of the MDRD equation for patients that are not between the ages of 18 and 70, are , have extremes of body size, muscle mass, or nutritional status, or are non- or non-. According to the National Kidney Foundation, irrespective of diagnosis, the stage of the disease is based on the level of kidney function: Stage Description GFR(mL/min/1.73 m(2)) 1 Kidney damage with normal or decreased GFR 90 2 Kidney damage with mild decrease in GFR 60-89 3 Moderate decrease in GFR 30-59 4 Severe decrease in GFR 15-29 5 Kidney failure <15 (or dialysis) 12 Therapeutic target for the treatment of diabetes Mellitus patients is <7% HBA1C, and in selective patients <6.0%.Please refer to [place] Diabetes Association Diabetic care guidelines for further information. 13 RUN DATE: 03/29/12 [facility] NMI LIVE PAGE 1 RUN TIME: 920 Specimen Inquiry RUN USER: INTERFACE Name: BETSEY WALTON Status: REG REF Re03/27/12 Age/Sex: 41/F Unit#: [id number] Location: Lewis Guzman : 68 SPEC #: [id number] LIS: 03/27/12 STATUS: COMP REQ #: [id number] RECD: 03/27/12 [facility] DR: Morris AU,Rissa Grant SOURCE: URINE ENTR: 03/27/12-[address] ORDERED: URINE C S QUERIES: MEDENT REQUISITION # [id number] SPECIMEN DESCRIPTION: URINE, CLEAN CATCH ACT WKST: UR 03/29/12 #1 Procedure Result Verified Site > URINE CULTURE SENSITIVI Final -920 ML SCANT NORMAL URETHRAL OR PERINEAL VINAYAK - [facility] Permit #[id number] [address] [place] [id number] DEPARTMENT OF PATHOLOGY, [address] [place] [id number] [facility] Permit #[id number] Cricket Huitron M.D. Director Jonas Martinez M.D. Shampooer 14 New Reference Range and Interpretation effective 07/23/2002 TnI (ng/ml) INTERPRETATION Less Than 0.06 ng/mL NOT SUPPORTIVE OF DIAGNOSIS OF SD 0.06 - 0.50 ng/ml INDETERMINATE: SUGGEST SERIAL STUDIES IF CLINICALLY INDICATED. Greater than 0.5 ng/mL CONSISTENT WITH DIAGNOSIS OF SD . 15 Anion gap measurement may be of limited value in the presence of any alkalosis, especially in a combined acid base disorder. . 16 Note change in reference range as of 06/09/08. The change was based on recommendations from the [place] [employer] Association. 17 Please note change in reference range effective 08 . 18 A metabolite of Naproxen, O-desmethylnaproxen, has been shown to interfere with the Jenjeronimo-Greg method for measuring total bilirubin. Samples from patients who have taken Naproxen have shown spurious elevation in total bilirubin levels. 19 Because ethnic data is not always readily available, this report includes an eGFR for both -Americans and non- Americans. The National Kidney Disease Education Program (NKDEP) does not endorse the use of the MDRD equation for patients that are not between the ages of 18 and 70, are , have extremes of body size, muscle mass, or nutritional status, or are non- or non-. According to the National Kidney Foundation, irrespective of diagnosis, the stage of the disease is based on the level of kidney function: Stage Description GFR(mL/min/1.73 m(2)) 1 Kidney damage with normal or decreased GFR 90 2 Kidney damage with mild decrease in GFR 60-89 3 Moderate decrease in GFR 30-59 4 Severe decrease in GFR 15-29 5 Kidney failure <15 (or dialysis) 20 New Reference Range and Interpretation effective 07/23/2002 TnI (ng/ml) INTERPRETATION Less Than 0.06 ng/mL NOT SUPPORTIVE OF DIAGNOSIS OF SD 0.06 - 0.50 ng/ml INDETERMINATE: SUGGEST SERIAL STUDIES IF CLINICALLY INDICATED. Greater than 0.5 ng/mL CONSISTENT WITH DIAGNOSIS OF SD . 21 CHOLESTEROL INTERPRETATION: Desirable: Less than 200 MG/DL Borderline-High Risk: 200-239 MG/DL High-Risk: 240 MG/DL and over 22 HDL INTERPRETATION: Undesirable: High Risk: Less than 40 MG/DL Desirable: Low Risk: Greater than 60 MG/DL 23 LDL INTERPRETATION: Low Risk Optimal Level: LDL Less than 100 MG/DL Near or Above Optimal: LDL 100-129 MG/DL Borderline High Risk: LDL 130-159 MG/DL High Risk: LDL 160-189 MG/DL Very High Risk: LDL Greater than 189 MG/DL 24 ---- RUN DATE: 02/23/08 [facility] NMI LIVE PAGE 1 RUN TIME: 1329 Specimen Inquiry RUN USER: INTERFACE -- Name: BETSEY WALTON Status: REG REF Re02/22/08 Age/Sex: 37/F Unit#: [id number] Location: [facility] : 68 -- Specimen: [id number] SOUJudith Spec Date: 02/22/[address]: Ning amin CNP Spec Type: CYTOLOGY Received: 02/23/08-0918 Copies to: SOURCE VAGINAL Thin Prep with Reflex HPV Test PATIENT INFORMATION ACTUAL COLLECTION DATE: 02/22/08 HYSTERECTOMY? Yes ADEQUACY OF SPECIMEN Satisfactory for evaluation * DIAGNOSIS NEGATIVE FOR INTRAEPITHELIAL LESION OR MALIGNANCY * This Pap test was evaluated with the assistance of the ThinPrep Pap Test Imaging System. The Pap Smear is a screening test designed to aid in the detection of premalign ant and malignant conditions of the uterine cervix. It is not a diagnostic procedure a nd should not be used as the sole means of detecting cervical cancer. Both false- positive and false-negative reports do occur. Depending on your risk status, a Pap smear ashleigh uld be obtained and evaluated every one to three years. Final Interpretation electronically signed by: Aparna BUENROSTRO([facility]) 02/23/08 1328 -- -- DEPARTMENT OF PATHOLOGY, [address] [place] [address] [facility] Permit #[id number] Cricket Huitron M.D. Director of Laboratories -- 25 HGBA1C (%) GLUCOSE CONTROL >8 Action Suggested 7-8 Good Control <7 Goal 6-7 Near Normal Glycem <6 Non-diabetic Level . 26 Effective February Please Note CHANGE IN REFERENCE RANGE. . Procedures Date CPT Code Description Status 10/20/2015 Mammogram Completed 02/13/2015 38107 Wearable ECG Monitor/Report W/Visual Superimposition Completed Scanning 02/13/2015 08181 EKG, at Least 12 Leads w/Interpretation and Report Completed Encounters Type Date Location Provider CPT E/M Dx Office Visit 11/13/2016 11:15a Main Office Rissa Harley, [facility] [address] R51 F41.9 J01.90 Office Visit 04/02/2016 9:00a Main Office Rissa Harley, [facility] 65298 R51 Office Visit 03/15/2016 9:30a Main Office Gee Hunter III, [facility] 19465 R51 Office Visit 02/13/2015 3:30p Main Office [facility] [address] 785.1 311 Office Visit 04/26/2014 9:15a Main Office Rissa Harley, [facility] [address] 789.9 786.50 Office Visit 01/13/2012 4:00p Main Office Rissa Harley [facility]- [address] 724.2 300.02 Office Visit 02/22/2008 8:00a Main Office Ning Arzola [facility] 41393 V72.31 V76.9 300.02 251.2 493.90 790.6 627.4 Office Visit 12/23/2007 4:15p Main Office Ning Arzola [facility] 38958 300.02 Office Visit 11/24/2007 11:45a Main Office Ning Arzola [facility] 02789 300.02 251.2 785.1 493.90 Office Visit 05/11/2002 4:00p Main Office Rissa Greenfield M.D. 61925 251.2 Office Visit 04/27/2002 3:30p Main Office Ning Arzola [facility] 03242 790.6 Office Visit 01/28/2002 11:00a Main Office Ning Arzola [facility] 22587 311 300.00 Office Visit 12/29/2001 9:15a Main Office Ning Arzola [facility] 28647 300.02 311 Office Visit 12/07/2001 8:15a Main Office Ning Arzola [facility] [address] Plan of Care Future Appointment(s):01/12/2018 1:30 pm - Sofía Robbins [employer] at Main [facility]4812/22/2017 - Sofía Robbins, NPR10.10 Upper abdominal pain, unspecifiedNew Labs:CBC Auto DiffComp Metabolic PanelTSH (Thyroid Stim Horm) ThyroxineVitamin J65Ckocwtk D Total 25(Oh)Lipid Profile (Trig/Chol/HDL)New Xrays :Ultrasound Abdomen, LimitedComments:Reviewed ED notes. NPO/Fasting Gallbladder Ultrasound orderedDiscussed worsening s/s and when to go back to ED.Discussed continuing low fat diet to decrease symptomsEducated on new/worsening symptoms and when to call/return. Patient stated understanding and agrees to planLabs ordered for upcoming physical as patient is over dueFollow up:schedule fasting/ npo gallbladder ultrasound as soon as possible make appointment for physical and pap print labs so patient can have fasting labs [place] [facility]
[2018-01-15 11:42] VITALS: BP 113/71
--- NOTE | 2018-01-15 12:28 | UC ---
Ericka Marquez Nilda, scribed for Olivia Pacheco MD on 01/15/18 at 1226 . Allergic Reaction HPI - HPI Summary HPI Summary: This patient is a 47 year old F presenting to [facility] with a chief complaint of constant worsening diffuse hives (erythematous, occasionally pruritic but not always) that first began on her right flank on 01/06/18. Rash is now on bilat LE , UE, and torso. Pt states she was seen at [facility] twice and treated with 5 days of Prednisone and then 2 rounds of topical treatment for scabies. Pt states her rash has worsened despite. Rahs is "everywhere" except hands, feet, face, head. Pt has taken Benadryl without improvement. The patient rates the pain 0/10 in severity. Symptoms aggravated and alleviated by nothing including Benadryl. Patient denies SOB, dyspnea, fever, chills, N/V/D, and hives on hands or feet. Pt denies new lotion, medications, clothing, detergent, recent abx, recent illness, and recent travel. No hot tub, bath, lotins. She states the family she lives with does not have similar symptoms. No pets Pt states she does not have hot tub, does not wear scented products, and only takes showers. No dietary changes Patients medication reviewed this visit. - History of Current Complaint Chief Complaint: UCSkin Stated Complaint: RASH Hx Obtained From: Patient Onset/Duration: Sudden Onset, Lasting Weeks, Still Present Severity Currently: Severe Pain Intensity: 0 Pain Scale Used: 0-10 Numeric Location: Discrete @ - torso Character: Hives Aggravating Factor(s): Nothing Alleviating Factor(s): Nothing Associated Signs And Symptoms: Positive: Other: - diffuse rash; denies SOB, dyspnea, fever, chills, N/V/D, and hives on hands or feet. - Allergies/Home Medications Allergies/Adverse Reactions: Allergies Allergy/AdvReac Type Severity Reaction Status Date / Time amoxicillin Allergy Severe Vomiting Verified 01/15/18 11:37 hydromorphone [From Dilaudid] Allergy Severe Hallucinati Verified 01/15/18 11:37 ons morphine Allergy Severe Hallucinati Verified 01/15/18 11:37 ons PMH/Surg Hx/FS Hx/Imm Hx Endocrine History: Diabetes Cardiovascular History: Other Other Cardiovascular History: Mitral Valve Prolapse - Surgical History Surgical History: Yes Surgery Procedure, Year, and Place: LT SHOULDER SURGERY X3. APPENDECTOMY. HYSTERECTOMY. Cardiac Cath - Family History Known Family History: Positive: Hypertension - Social History Occupation: Employed Full-time Lives: With Family Alcohol Use: Occasionally Substance Use Type: None Smoking Status (MU): Light Every Day Tobacco Smoker Amount Used/How Often: 1/2 pack/day Review of Systems Constitutional: Other - negative fever, chills Skin: Rash - diffuse hives on legs, arms, torso; negative rash on hands, face, and feet Cardiovascular: Other - negative SOB, dyspnea Gastrointestinal: Other - negative N/V/D All Other Systems Reviewed And Are Negative: Yes Physical Exam Triage Information Reviewed: Yes Vital Signs: Initial Vital Signs Temp 98.1 F 01/15/18 11:38 Pulse 86 01/15/18 11:38 Resp 18 01/15/18 11:38 BP 113/71 01/15/18 11:38 Pulse Ox 100 01/15/18 11:38 Eye Exam: Normal Eyes: Positive: Conjunctiva Clear ENT Exam: Normal ENT: Positive: Normal ENT inspection, Hearing grossly normal, Pharynx normal, TMs normal Dental Exam: Normal Neck exam: Normal Neck: Positive: Supple, Nontender Respiratory Exam: Normal Respiratory: Positive: Chest non-tender, Lungs clear, Normal breath sounds, No respiratory distress Cardiovascular Exam: Normal Cardiovascular: Positive: RRR, No Murmur Abdominal Exam: Normal Abdomen Description: Positive: Nontender, No Organomegaly, Soft Bowel Sounds: Positive: Present Musculoskeletal Exam: Normal Musculoskeletal: Positive: Strength Intact Neurological Exam: Normal Neurological: Positive: Alert Psychological Exam: Normal Psychological: Positive: Normal Response To Family Skin: Positive: rashes - Pt has raised, erythematous lesions diffusely on body sparing head, face, hands and feet. No lesions inn webspace raised, not ulcerative, not vesicular, no drainage Re-Evaluation - Re-Evaluation First Eval Re-Evaluation Time: 12:25 Comment: Reviewed treatment plan with pt and appointment with dermatology set for 14:30 today. Allergic Reaction Course/Dx - Course Course Of Treatment: Pt with diffuse body rash x 10 days - no drainage, worsening despite oral pred, intermittent pruritis. Does not appear infectious. unclear etiology. recommend pt to dermatology -spoke with derm - pt with appt 2:30 today in [place]. Pt comfortable and in agreement with plan - Differential Dx/Diagnosis Provider Diagnoses: acute rash - Physician Notification/Consults Discussed Patient Care With: Montrell James - Dermatology Time Discussed With Above Provider: 12:24 Instructed by Provider To: Other - agrees to see in office at 2:30 today. Discharge - Sign-Out/Discharge Documenting (check all that apply): Discharge - Discharge Plan Condition: Stable Disposition: HOME Patient Education Materials: Acute Rash (ED) Referrals: Montrell James MD [Medical Doctor] - 01/15/18 ([address] [place] [address] [address] [place], [place] 2:30pm ) Sofía Robbins NP [Primary Care Provider] - Additional Instructions: The aerial gunner superintendent is expecting you at 2:30pm today at his [facility] office Bring your insurance card with you If you develop difficulty breathing, facial swelling or other concerns do directly to the hospital - Billing Disposition and Condition Condition: STABLE Disposition: HOME The documentation as recorded by the Ericka byrd Nilda accurately reflects the service I personally performed and the decisions made by , Olivia Pacheco MD.
== END 2018-01-15 12:30 | disposition home or self-care (01) ==
LOC: UCEAST 11:30
DX: R21 Rash and other nonspecific skin eruption (principal); E11.9 Type 2 diabetes mellitus without complications; I34.1 Nonrheumatic mitral (valve) prolapse; Z88.1 Allergy status to other antibiotic agents; Z88.5 Allergy status to narcotic agent; F17.210 Nicotine dependence, cigarettes, uncomplicated
CPT/HCPCS: 99211; G0463

== ENCOUNTER 2018-02-27 09:46 | Day surgery (SDC) | payer BC ==
--- NOTE | 2018-02-24 03:04 | HP ---
CC: Sofía Robbins NP at [facility] * ADMISSION HISTORY AND PHYSICAL: DATE OF ADMISSION: 02/27/18 ATTENDING SURGEON: Tahmina Tee MD * (DICTATED BY LOGAN OWEN) CHIEF COMPLAINT: Cholesterolosis (biliary colic). HISTORY OF PRESENT ILLNESS: This is a 47-year-old female who for the past 6 months has had recurrent symptoms of right upper quadrant pain radiating to the back with a major attack of pain on 12/17/17 and subsequent attacks of a lesser degree. She estimates she has had 4 to 5 attacks all together, but also has chronic symptoms of discomfort, which she describes like a gas bubble in the right upper quadrant. Attacks are characterized by right upper quadrant pain radiating to the back associated with nausea, but without significant vomiting. She denies fever or chills. She did undergo lab work on 12/17/17, which was normal including liver function tests and lipase. A bedside ultrasound at that time revealed a contracted gallbladder. A subsequent ultrasound on 12/23/17 revealed a 1 mm echogenic structure in the posterior wall consistent with either a polyp or a small stone adhesed to the wall. The gallbladder wall itself was measured at 2.6 mm. There was no pericholecystic fluid or ductal dilatation. Retrospectively, the patient did have similar symptoms over the past 2 to 3 years and in fact did have a HIDA scan done during that time period while she was living in [place]. She states she was told that all of her studies at that time were normal. She denies any change in the color of her urine or stools. She was referred for surgical evaluation and seen by Dr. Tee on 01/13/18 and subsequently at the end of January. Dr. Tee's impression was that of biliary colic, but felt that a GI consultation was indicated. However, the patient could not get scheduled for that consult until late in February and after further discussion, Dr. Tee felt that she could proceed with recommendation for surgery. The patient understands the indications, risks, benefits, and alternatives of surgery and would like to proceed as scheduled with laparoscopic cholecystectomy. PAST MEDICAL HISTORY: Asthma, environmental allergies, ADHD, diet-controlled diabetes (the patient is unsure of her last A1c, though believes it might be 7.1 ; there is no recent A1C in the [facility] system). PAST SURGICAL HISTORY: She has undergone the following prior surgeries. Left shoulder surgery x3, laparoscopic subtotal vaginal hysterectomy for benign disease, open appendectomy for nonruptured appendicitis. No report of surgical or anesthesia complications. CURRENT MEDICATIONS: 1. Adderall XR 30 mg once daily. 2. Aspirin 81 mg once daily (the patient instructed to hold, her last dose being 02/23/18). 3. Albuterol MDI p.r.n. (the patient cannot recall the last time she used it). ALLERGIES: PENICILLIN (hives) (the patient has tolerated amoxicillin), NARCOTICS especially MORPHINE (hallucinations) (the patient has tolerated hydrocodone). FAMILY HISTORY: The patient is adopted and does not know much of her biological family history. She knows that her father had an NM at 45. She is unaware of any family history problems with anesthesia, bleeding or thromboembolic disease. SOCIAL HISTORY: The patient currently lives with her daughter and 2-1/2-year- old granddaughter. 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 She is a current smoker of approximately 6 cigarettes per day x20 years with ultimate goal of quitting for good, though is planning to postpone that until after surgery. She drinks alcohol rarely and denies recreational drug use. REVIEW OF SYSTEMS: General: No recent constitutional symptoms or acute illnesses other than described in the HPI. Weight has been stable. Eyes: No recent visual changes. Ears, nose, throat: No problems reported. Nodes: No cervical, axillary, or inguinal swelling. Cardiovascular: She did have chest pain in the distant past and has undergone stress test and catheterization, which she states were normal studies. These were over 10 years ago. No recent chest pain, palpitations, or heart murmur. She does state that she will have occasional PVCs. Respiratory: No recent exacerbations of her asthma. She continues to try to quit smoking. No recent cough or shortness of breath. GI: As above per HPI. Also, the patient did undergo colonoscopy and EGD approximately 2 to 3 years ago in [place], both of which she states were normal studies. : No problems reported. Endocrine: No diabetes or thyroid dysfunction. CAT SKINNER: She is up-to-date within the past year for pelvic exam and within 2 years for breast exam and mammogram, all reportedly normal with no change in interval self-exam for breasts. Neuropsych: History of ADHD. No additions. PHYSICAL EXAMINATION GENERAL: Well-nourished, well-developed female in no acute distress. VITAL SIGNS: Temperature 96.9, blood pressure 122/72, pulse 68, respirations 16. Height 5 feet 2 inches, weight 133 pounds. HEENT: Pupils are equal, round, and reactive. EOMs intact. No conjunctival pallor or scleral icterus. Oropharynx: She has full upper and partial lower denture. Remaining teeth in good repair. No intraoral lesions. NECK: No lymphadenopathy or thyromegaly. No masses. LUNGS: Clear to auscultation. No rales or wheezes. HEART: Regular rate and rhythm. No murmur detected. BREASTS: Not examined. ABDOMEN: Soft, nontender to palpation with minor tenderness in the mid epigastrium and right upper quadrant. Negative Costa sign. No palpable masses or organomegaly. GENITALIA: Not done. RECTAL: Not done. BACK: No spinous process or CVA tenderness. EXTREMITIES: No edema. NEUROLOGIC: Grossly intact. SKIN: Warm and dry. No suspicious rashes or lesions noted. IMPRESSION: Cholesterolosis (biliary colic). PLAN: Laparoscopic cholecystectomy. LOGAN OWEN [id number]/[facility] #: [id number] MTDD
[~2018-02-27 09:46] MED LIST: Buffered Lidocaine 0.9% SYRIN* 5 ML/SYR SYRINGE INTRADERM ONE; Dexamethasone IV* 4 MG/ML 1 ML (4 MG) ONE; DiMENhydriNATE IV* 50 MG/ML VIAL ONE; Famotidine IV* 10 MG/ML 2 ML (20 mg) IV ONE; Ketorolac INJ* 30 MG/ML 1 ML VIAL ONE; Lidocaine 2% PF * 5 ML VIAL ONE; Midazolam* 1 MG/ML 5 ML VIAL (5 MG) ONE; Propofol* 10 MG/ML 20 ML BTL IV PUSH ONE; Rocuronium* 10 MG/ML VIAL ONE; Succinylcholine* 20 MG/ML 10 ML VIAL ONE; fentaNYL* 50 MCG/ML 2 ML VIAL (100 MCG VIAL) ONE
[2018-02-27] MEDS ORDERED: ceFAZolin 2 GM PREMIX (*) 2 GM/50 ML BAG IVPB ONE (09:57)
[2018-02-27] MEDS ORDERED: Famotidine IV* 10 MG/ML 2 ML (20 mg) ONE (09:57)
[2018-02-27] MEDS ORDERED: Bupivacaine 0.25% SDV* 30 ML ONE (10:34)
[2018-02-27] MEDS ORDERED: fentaNYL* 50 MCG/ML 2 ML VIAL (100 MCG VIAL) ONE ×2 (11:19→12:31)
[2018-02-27] MEDS ORDERED: EPHEDrine (Pressors)* 50 MG/ML VIAL ONE (11:44)
[2018-02-27] MEDS ORDERED: Acetaminophen IV 1GM/100ML * 1,000 MG/100 ML VIAL IVPB ONE (11:46)
[2018-02-27] MEDS ORDERED: DiMENhydriNATE IV* 50 MG/ML VIAL IV PUSH PRN (11:46)
[2018-02-27] MEDS ORDERED: Naloxone* 0.4 MG/ML 1 ML VIAL IV PRN (11:46)
[2018-02-27] MEDS ORDERED: Neostigmine Methylsulfate* 1 MG/ML 10 ML VIAL (1 mg/ml) ONE (12:00)
[2018-02-27] MEDS ORDERED: Glycopyrrolate IV* 0.2 MG/ML 1 ML VIAL ONE (12:00)
[2018-02-27] MEDS ORDERED: Acetaminophen IV 1GM/100ML * 100 ML ONE (12:31)
[2018-02-27] MEDS: fentaNYL* 50 MCG/ML 2 ML VIAL (100 MCG VIAL) IV PRN ×3 (12:42→14:02)
[2018-02-27] MEDS ORDERED: DiMENhydriNATE IV* 50 MG/ML VIAL ONE (13:03)
[2018-02-27] MEDS ORDERED: Ondansetron TAB* 4 MG PO ONE (14:07)
[2018-02-27] MEDS ORDERED: Ondansetron ODT TAB* 4 MG ONE (14:07)
[2018-02-27 15:51] VITALS: BP 101/60
--- NOTE | 2018-02-28 05:50 | OP ---
CC: [facility]; Sofía Robbins NP OPERATIVE REPORT: DATE OF OPERATION: 02/27/18 DATE OF : 68 SURGEON: Tahmina Tee MD MANAGER CORPORATE COMMUNICATIONS: Elle Philip NP PRE-OP DIAGNOSIS: Chronic cholecystitis. POST-OP DIAGNOSIS: Chronic cholecystitis. OPERATIVE PROCEDURE: Laparoscopic cholecystectomy. INDICATIONS: Ms. Walton is a 47-year-old woman with a history of right upper quadrant abdominal pain a ssociated with findings consistent with cholecystitis prompting the plan for surgical intervention. DESCRIPTION OF PROCEDURE: She was brought to the operating room, placed on the OR table in a supine position and given general anesthesia. The abdomen was then prepped and draped in the usual sterile fashion. After infiltrating with local anesthetic, an incision was made in the infraumbilical area. Subcutaneous tissue was divided bluntly. The fascia was grasped and incised and a 0 Vicryl stitch w as placed on either side of the fascial incision. A trocar was inserted into the abdomen and the abd omen was insufflated. Then, under direct visualization, a subxiphoid and 2 right subcostal ports wer e placed after infiltrating with local anesthetic. The gallbladder was visualized and noted to be no t particularly inflamed, although slightly edematous. It was grasped and elevated over the liver and then dissection in the region of the infundibulum was accomplished. This exposed the cystic duct, w hich was doubly clipped and divided and then the cystic artery was doubly clipped and divided. The g allbladder was taken down from the liver bed using electrocautery and withdrawn from the abdomen thro ugh the subxiphoid port site. The liver bed was inspected for hemostasis, which was achieved with el ectrocautery and then all ports were withdrawn under direct visualization. The previously placed 0 V icryl was used to close the fascia of the infraumbilical port site and 4-0 Monocryl was used to close the skin of all incisions. Steri-Strips were applied. All sponge and instrument counts were correc t. The patient tolerated the procedure well and was transferred to Recovery in a stable condition. [id number]/[facility] #: [id number]
== END 2018-02-27 16:08 | disposition home or self-care (01) ==
LOC: OR 09:46
PROVIDERS: ATTEND Surgery
DX: K81.1 Chronic cholecystitis (principal); E11.9 Type 2 diabetes mellitus without complications; J45.909 Unspecified asthma, uncomplicated; J30.9 Allergic rhinitis, unspecified; F17.210 Nicotine dependence, cigarettes, uncomplicated
CPT/HCPCS: 88304; A9270-GY; J0330; J0690; J1100; J1240; J1885; J2250; J2704; J2710; J3010

== ENCOUNTER 2018-04-27 19:09 | Emergency (ER) | payer BC ==
[2018-04-27] MEDS ORDERED: Tetracaine 0.5% OPTH.SOL 15ML* BTL ONE (19:58)
[2018-04-27] MEDS ORDERED: Tetracaine 0.5% OPTH.SOL 4 ML* 1 DROP BTL RIGHT EYE ONE (20:00)
[2018-04-27] MEDS ORDERED: Polymyx/Trimethoprim OPTH* 10 ML BTL RIGHT EYE SCH (21:00)
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
[2018-04-27 21:17] VITALS: BP 123/73
== END 2018-04-27 21:16 | disposition home or self-care (01) ==
LOC: ED 19:09
DX: T59.91XA Toxic effect of unspecified gases, fumes and vapors, accidental (unintentional), initial encounter (principal); T26.62XA Corrosion of cornea and conjunctival sac, left eye, initial encounter; T26.61XA Corrosion of cornea and conjunctival sac, right eye, initial encounter; Y92.9 Unspecified place or not applicable; E11.9 Type 2 diabetes mellitus without complications; H53.149 Visual discomfort, unspecified; H53.8 Other visual disturbances; F17.210 Nicotine dependence, cigarettes, uncomplicated
CPT/HCPCS: 99282; A9270-GY

== ENCOUNTER 2018-10-10 12:15 | Emergency (ER) | payer BC ==
[2018-10-10 12:38] VITALS: BP 127/73
--- NOTE | 2018-10-10 12:48 | UC ---
Throat Pain/Nasal Larry HPI - HPI Summary HPI Summary: 48 yo female presents with sinus pain/pressure/congestion over the last month. Has been taking OTC mucinex and tylenol with no relief. Also, she mentions that about a week ago she developed a painful/tingling lesion to her upper forehead that spread to the left side of her forehead - these lesions are mostly scabbed and faded now, but she is wondering if it was shingles. She denies fever, chills , eye pain, vision changes, cough, SOB, chest pain, n/v. - History of Current Complaint Chief Complaint: UCGeneralIllness Stated Complaint: SINUS COMPLAINT Time Seen by Provider: 10/10/18 12:47 Hx Obtained From: Patient Onset/Duration: Gradual Onset Severity: Moderate Pain Intensity: 5 Pain Scale Used: 0-10 Numeric - Allergies/Home Medications Allergies/Adverse Reactions: Allergies Allergy/AdvReac Type Severity Reaction Status Date / Time latex Allergy Severe Hives, Verified 10/10/18 12:39 ITCHING bee venom protein (honey bee) Allergy Airway Verified 10/10/18 12:39 Obstruction amoxicillin AdvReac Severe Vomiting Verified 10/10/18 12:39 hydromorphone [From Dilaudid] AdvReac Severe Hallucinati Verified 10/10/18 12:39 ons morphine AdvReac Severe Hallucinati Verified 10/10/18 12:39 ons Home Medications: Home Medications EPINEPHrine [Epipen] 0.3 mg IJ PRN 10/10/18 [History Confirmed 10/10/18] PMH/Surg Hx/FS Hx/Imm Hx - Additional Past Medical History Additional PMH: ADHD Respiratory History: Asthma - Surgical History Surgical History: Yes Surgery Procedure, Year, and Place: LT SHOULDER SURGERY X3. APPENDECTOMY. HYSTERECTOMY. Cardiac Cath 10 years ago - Family History Known Family History: Positive: Hypertension - Social History Occupation: Employed Full-time Lives: With Family Alcohol Use: Rare Substance Use Type: None Smoking Status (MU): Light Every Day Tobacco Smoker Amount Used/How Often: approx 6 cigarettes a day. smoking for 20 years Review of Systems All Other Systems Reviewed And Are Negative: Yes Constitutional: Positive: Negative Skin: Positive: Rash Eyes: Positive: Negative ENT: Positive: Nasal Discharge, Sinus Congestion, Sinus Pain/Tenderness Respiratory: Positive: Negative Cardiovascular: Positive: Negative Gastrointestinal: Positive: Negative Neurovascular: Positive: Negative Neurological: Positive: Negative Psychological: Positive: Negative Physical Exam - Summary Physical Exam Summary: GENERAL: NAD. WDWN. No pain distress. SKIN: Mildly erythematous 1.0cm crusted/scabbed lesion on superior portion of forehead. Faint and faded 2-3mm lesions on left side of forehead. One 1mm lesion on left eyelid that is mildly TTP. HEENT: Head: AT/NC Eyes: EOM intact. Conjunctiva clear without inflammation or discharge. Ears: Hearing grossly normal. TMs intact, no bulging, erythema, or edema. Nose: Nasal mucosa mildly swollen and erythematous with yellow/ clear discharge. TTP maxillary and frontal sinus. Positive post nasal drip Throat: Posterior oropharynx without exudates, erythema, or tonsillar enlargement. Uvula midline. NECK: Supple. Nontender. No lymphadenopathy. CHEST: CTAB. No r/r/w. No accessory muscle use. Breathing comfortably and in no distress. CV: RRR. Without m/r/g. Pulses intact. NEURO: Alert. PSYCH: Age appropriate behavior. Triage Information Reviewed: Yes Vital Signs: Initial Vital Signs Temp 97.5 F 10/10/18 12:35 Pulse 86 10/10/18 12:35 Resp 16 10/10/18 12:35 BP 127/73 10/10/18 12:35 Pulse Ox 100 10/10/18 12:35 Vital Signs Reviewed: Yes Throat Pain/Nasal Course/Dx - Course Course Of Treatment: Sinusitis. Suspect shingles of ophthalmic branch trigeminal nerve on left. These lesions are over a week old and seem to be scabbed and healing. Advised pt to continue to monitor and if she develops any eye pain or vision changes to be recheck immediately - preferrably by ophthalmology. - Differential Dx/Diagnosis Provider Diagnosis: Sinusitis, Shingles Discharge - Sign-Out/Discharge Documenting (check all that apply): Patient Departure All imaging exams completed and their final reports reviewed: No Studies - Discharge Plan Condition: Stable Disposition: HOME Prescriptions: DOXYcycline CAP(*) [DOXYcycline 100MG CAP(*)] 100 mg PO BID #20 cap Patient Education Materials: Shingles (ED), Sinusitis (ED) Forms: *Work Release Referrals: Sofía Robbins NP [Primary Care Provider] - Additional Instructions: If you develop a fever, shortness of breath, chest pain, new or worsening symptoms - please call your PCP or go to the ED. 1) Please monitor your shingles and if you notice they are encroaching your eye - please follow up with an Farm Crew Member. - Billing Disposition and Condition Condition: STABLE Disposition: Home
== END 2018-10-10 13:06 | disposition home or self-care (01) ==
LOC: UCEAST 12:15
DX: J32.9 Chronic sinusitis, unspecified (principal); B02.9 Zoster without complications; J45.909 Unspecified asthma, uncomplicated; F17.210 Nicotine dependence, cigarettes, uncomplicated; Z91.030 Bee allergy status; Z91.040 Latex allergy status; Z88.0 Allergy status to penicillin; Z88.5 Allergy status to narcotic agent
CPT/HCPCS: 99212; G0463

== ENCOUNTER 2019-06-30 11:09 | Emergency (ER) | payer BC ==
--- NOTE | 2019-06-30 11:35 | ED ---
GI/ HPI - HPI Summary HPI Summary: The patient is a 49 y/o F presenting to [facility] with a chief complaint of sharp left backpain for the last two days. She reports that shes had increased urinary frequency and increase in pain. No dysuria, hematuria, or incontinence. Pt states back pain position and is causing her to have difficulty standing or sitting in one position. The pain is aggravated by movement. She additionally c/ o nausea without vomiting approximately 30 minutes ago that is still present now. Currently, the symptoms are rated 6/10 in severity. She denies any dysuria , hematuria, or difficulty urinating. No vaginal discharge. She hasnt taken any medications DYE EXPERT to treat the pain. .no history of similar. no trauma. No recent traveling. No known PMHx or FHx of kidney stones. Noted hx of hysterectomy with left ovary still intact. Light every day smoker, rare EtOH, no substance use. Patients medications reviewed this visit. Allergies noted. - History of Current Complaint Chief Complaint: EDFlankPain Time Seen by Provider: 06/30/19 11:20 Stated Complaint: FLANK PAIN PER PT Hx Obtained From: Patient Onset/Duration: Started Days Ago - two, Still Present, Worse Since - today Timing: Lasting Days Severity: Mild Current Severity: Moderate Pain Intensity: 6 Location of Pain: Flank - left Pain Characteristics: Sharp Associated Signs and Symptoms: Positive: Nausea, Flank Pain - left, Other: - Positive: increased urinary frequency. Negative: fever, difficulty with urination.. Negative: Vomiting, Fever, Hematuria, Dysuria Additional Signs & Symptoms: Negative: Recent Travel Aggravating Factor(s): Movement Alleviating Factor(s): Rest - Allergy/Home Medications Allergies/Adverse Reactions: Allergies Allergy/AdvReac Type Severity Reaction Status Date / Time latex Allergy Severe Hives, Verified 10/10/18 12:39 ITCHING bee venom protein (honey bee) Allergy Airway Verified 10/10/18 12:39 Obstruction amoxicillin AdvReac Severe Vomiting Verified 10/10/18 12:39 hydromorphone [From Dilaudid] AdvReac Severe Hallucinati Verified 10/10/18 12:39 ons morphine AdvReac Severe Hallucinati Verified 10/10/18 12:39 ons Home Medications: Home Medications Atenolol TAB* [Tenormin TAB* 50 MG] 50 mg PO BID 06/30/19 [History Confirmed 09/07] Naproxen TAB* [Naprosyn 250 mg TAB*] 500 mg PO BID 06/30/19 [History Confirmed 06/30/19] Ondansetron ODT TAB* [Zofran 4 MG Odt TAB*] 4 mg PO Q6H PRN 06/30/19 [History Confirmed 06/30/19] PMH/Surg Hx/FS Hx/Imm Hx Previously Healthy: Yes Endocrine/Hematology History: Reports: Hx Diabetes - TYPE II, diet controlled Cardiovascular History: Reports: Hx Angina - APPROX MORE THAN 3 YEARS AGO- STRESS RELATED, Other Cardiovascular Problems/Disorders - MITRAL VALVE PROLAPSE , MURMUR Denies: Hx Hypertension, Hx Pacemaker/ICD Respiratory History: Reports: Hx Asthma GI History: Reports: Hx Gastroesophageal Reflux Disease Sensory History: Denies: Hx Contacts or Glasses Opthamlomology History: Denies: Hx Contacts or Glasses Psychiatric History: Reports: Hx Anxiety, Hx Attention Deficit Hyperactivity Disorder, Hx Depression Denies: Hx Panic Disorder - Cancer History Hx Chemotherapy: No - Surgical History Surgical History: Yes Surgery Procedure, Year, and Place: LT SHOULDER SURGERY X3. APPENDECTOMY. HYSTERECTOMY - left ovary intact. Cardiac Cath 10 years ago Hx Anesthesia Reactions: No Infectious Disease History: No Infectious Disease History: Denies: Traveled Outside the [place] in Last 30 Days - Family History Known Family History: Positive: Hypertension, Non-Contributory Negative: Renal Disease - no fhx of kidney stones - Social History Occupation: Employed Full-time Lives: With Family Alcohol Use: Rare Hx Substance Use: No Substance Use Type: Reports: None Hx Tobacco Use: Yes Smoking Status (MU): Light Every Day Tobacco Smoker Amount Used/How Often: approx 6 cigarettes a day. smoking for 20 years Review of Systems Negative: Fever Positive: Nausea. Negative: Vomiting Positive: frequency - increased, flank pain - left, other - Negative: difficulty urinating.. Negative: dysuria, hematuria All Other Systems Reviewed And Are Negative: Yes Physical Exam - Summary Physical Exam Summary: Vital Signs Reviewed: Yes A+Ox3, discomfort with movement, position change Eyes: Conjunctiva Clear, HASMUKH. EOM intact and full ENT: Hearing grossly normal TM x 2 clear, mmoist, uvula midline, no exudate, no erythema Neck: Positive: Supple Respiratory: Positive: No respiratory distress, No accessory muscle use + CTA throughout no w/r Cardiovascular: RRR nl s1, s2 no m/r CBT <2 sec abd soft + BS nt/nd no guarding, no distension Musculoskeletal Exam: RIBERA x 4 without difficulty Strength Intact, ROM Intact, no spinous process pain c/t/l/s Full AROM intact and full. Pt with left paraspinal distal thoracic spine with direct palp. Pain with slignt increase with left SLE full AROM ext x 4 Neurological: Positive: Alert, + sensation throughout Psychological: Positive: Normal Response To manager clinical informatics Skin: Positive: no rash, no ecchymosis, no erythema Triage Information Reviewed: Yes Vital Signs On Initial Exam: Initial Vitals Temp Pulse Resp BP Pulse Ox 98.2 F 90 16 122/87 96 06/30/19 11:16 06/30/19 11:16 06/30/19 11:16 06/30/19 11:16 06/30/19 11:16 Vital Signs Reviewed: Yes Diagnostics - Vital Signs Vital Signs Temp Pulse Resp BP Pulse Ox 06/30/19 11:16 98.2 F 90 16 122/87 96 - Laboratory Result Diagrams: 06/30/19 11:58 06/30/19 11:58 Lab Statement: Any lab studies that have been ordered have been reviewed, and results considered in the medical decision making process. - CT Abd/Pel CT CT Interpretation Completed By: Radiologist Summary of CT Findings: Impression: 1. No evidence for acute finding. 2. Status post cholecystectomy and appendectomy. 3. Small periumbilical hernia containing fat. ED physician has reviewed this report. Re-Evaluation - Re-Evaluation First Eval Re-Evaluation Time: 13:02 Change: Improved Comment: Pain has improved with Toradol, and she is more comfortable. She declines any further pain medication. awaint CT results Second Eval Re-Evaluation Time: 14:25 Comment: We discussed all results and plan for discharge home. Will start abx, culture urine. Rx flexeril. motrin.apap. return precautions. pt declined work note GIGU Course/Dx - Course Course Of Treatment: Pt presents with 2 days of urinary sx and focal pain left paraspinal distal thoracic. Pt has not taken analgesia. VSS. will give toradol, fluids, check labs, urine. will check CT non contrast and reassess - Diagnoses Provider Diagnoses: Back pain, Urinary frequency Discharge ED - Sign-Out/Discharge Documenting (check all that apply): Patient Departure - Patient will be discharged home. Patient Received Moderate/Deep Sedation with Procedure: No - Discharge Plan Condition: Stable Disposition: HOME Prescriptions: Cyclobenzaprine TAB* [Flexeril 10 MG TAB*] 5 mg PO Q8HR PRN #10 tab MDD 3 PRN Reason: Spasms Naproxen [Naproxen 250 mg tab] 500 mg PO BID #20 tablet Ondansetron ODT TAB* [Zofran 4 MG Odt TAB*] 4 mg PO Q6H PRN #12 tab.odt PRN Reason: Nausea Sulfamethox/Trimethoprim DS* [Bactrim DS 800/160 TAB*] 1 tab PO BID #14 tab Patient Education Materials: Low Back Strain (ED), Dysuria (ED) Forms: *Work Release Referrals: Alvin Curran, ACTIVITIES OFFICER [Primary Care Provider] - Additional Instructions: - Okay to take Tylenol (acetaminophen) every 6-8 hours for pain or fever. Take with food. Do NOT take for more than 4-5 days - Okay to take Naproxyn for pain - take with food - Take Flexeril muscle relaxer as prescribed for muscle spasm - do no drive, operate machinery or drink alcohol while taking this medication - Apply heat to your back - once muscles are warm - slow, gentle stretching exercises are recommended - As discussed, your urine has been sent for additional testing. If you need a different antibiotic, you will receive call from a care steam press tender - Take antibiotics as prescribed - Call your doctor or return with questions or concerns - Billing Disposition and Condition Condition: STABLE Disposition: Home - Attestation Statements Document Initiated by Maryjane: Yes Documenting Scribe: Geeta Pickett Provider For Whom Maryjane is Documenting (Include Credential): Dr. Olivia Pacheco MD Scribe Attestation: Geeta Marquez scribed for Dr. Olivia Pacheco MD on 07/01/19 at 2101. Scribe Documentation Reviewed: Yes Provider Attestation: The documentation as recorded by the Geeta byrd accurately reflects the service I personally performed and the decisions made by me, Dr. Olivia Pacheco MD Status of Scribe Document: Viewed
[2019-06-30] MEDS: Ondansetron ODT TAB* 4 MG PO ONE (11:42)
[2019-06-30 12:12] LABS: ABS Basophils 0.1 10^3/ul (0-0.2); ABS Eosinophils 0.1 10^3/ul (0-0.6); ABS Lymphocytes 3.4 10^3/ul (1.0-4.8); ABS Monocytes 0.5 10^3/ul (0-0.8); ABS Neutrophils 2.7 10^3/ul (1.5-7.7); Eosinophil % 1.3 %; Hematocrit 39 % (35-47); Hemoglobin 13.4 g/dL (12.0-16.0); Lymphocyte % 50.3 %; Mean Corpuscular HGB Conc 34 g/dL (31-36); Mean Corpuscular Hemoglobin 31 pg (27-31); Mean Corpuscular Volume 90 fL (80-97); Mean Platelet Volume 7.8 fL (7.4-10.4); Nucleated Red Blood Cells % 0.1; Platelet Count 322 10^3/uL (150-450); Red Blood Count 4.37 10^6 /uL (3.70-4.87); Red Cell Distribution Width 14 % (10-15); White Blood Count 6.7 10^3/uL (3.5-10.8)
[2019-06-30 12:16] LABS: Urine Appearance Cloudy; Urine Bacteria Absent (Absent); Urine Bilirubin Negative (Negative); Urine Blood Negative (Negative); Urine Color Yellow; Urine Glucose Negative (Negative); Urine Ketones Negative (Negative); Urine Nitrite Negative (Negative); Urine Protein Negative (Negative); Urine Red Blood Cell Absent (Absent); Urine Specific Gravity 1.013 (1.010-1.030); Urine Squamous Epithelial Cell Present (Absent); Urine Urobilinogen Negative (Negative); Urine White Blood Cell 1+(6-10/hpf) (Absent)
[2019-06-30] MEDS: NS 0.9% 1000 ML** 1,000 ML IV ONE (12:16)
[2019-06-30] MEDS: Ketorolac INJ* 30 MG/ML 1 ML VIAL IV PUSH ONE (12:16)
[2019-06-30 12:28] LABS: Albumin/Globulin Ratio 1.5 (1-3); BUN/Creatinine Ratio 14.1 (8-20); EGFR African American 85.7 (>60); EGFR Non-African American 70.8 (>60); Globulin 2.6 g/dL (2-4); Magnesium 1.8 mg/dL (1.9-2.7); Potassium 3.7 mmol/L (3.5-5.0); Total Bilirubin 0.3 mg/dL (0.2-1.0); Total Protein 6.6 g/dL (6.4-8.9)
[2019-06-30] MEDS: Acetaminophen TAB* 325 MG PO ONE (14:40)
[2019-06-30] MEDS: Sulfamethox/Trimethoprim DS 800/160* TAB PO ONE (14:40)
[2019-06-30 15:00] VITALS: BP 133/75
--- NOTE | 2019-07-02 08:51 | UC ---
- Progress Note Progress Note: urine culture no growth advised pt to discharge antibiotics pt in agreement and comfortable and in agreement with plan Course/Dx - Diagnoses Provider Diagnoses: Back pain, Urinary frequency Discharge ED - Sign-Out/Discharge Documenting (check all that apply): Post-Discharge Follow Up Patient Received Moderate/Deep Sedation with Procedure: No - Discharge Plan Condition: Stable Disposition: HOME Prescriptions: Cyclobenzaprine TAB* [Flexeril 10 MG TAB*] 5 mg PO Q8HR PRN #10 tab MDD 3 PRN Reason: Spasms Naproxen [Naproxen 250 mg tab] 500 mg PO BID #20 tablet Ondansetron ODT TAB* [Zofran 4 MG Odt TAB*] 4 mg PO Q6H PRN #12 tab.odt PRN Reason: Nausea Sulfamethox/Trimethoprim DS* [Bactrim DS 800/160 TAB*] 1 tab PO BID #14 tab Patient Education Materials: Low Back Strain (ED), Dysuria (ED) Forms: *Work Release Referrals: Alvin Curran, BICYCLE ASSEMBLER [Primary Care Provider] - Additional Instructions: - Okay to take Tylenol (acetaminophen) every 6-8 hours for pain or fever. Take with food. Do NOT take for more than 4-5 days - Okay to take Naproxyn for pain - take with food - Take Flexeril muscle relaxer as prescribed for muscle spasm - do no drive, operate machinery or drink alcohol while taking this medication - Apply heat to your back - once muscles are warm - slow, gentle stretching exercises are recommended - As discussed, your urine has been sent for additional testing. If you need a different antibiotic, you will receive call from a care sales floor team member - Take antibiotics as prescribed - Call your doctor or return with questions or concerns - Billing Disposition and Condition Condition: STABLE Disposition: Home
== END 2019-06-30 14:59 | disposition home or self-care (01) ==
LOC: ED 11:09
DX: M54.9 Dorsalgia, unspecified (principal); R35.0 Frequency of micturition; K42.9 Umbilical hernia without obstruction or gangrene; E11.9 Type 2 diabetes mellitus without complications; K21.9 Gastro-esophageal reflux disease without esophagitis; F41.9 Anxiety disorder, unspecified; F90.9 Attention-deficit hyperactivity disorder, unspecified type; F32.9 Major depressive disorder, single episode, unspecified; F17.210 Nicotine dependence, cigarettes, uncomplicated; Z79.899 Other long term (current) drug therapy; Z88.5 Allergy status to narcotic agent; Z88.1 Allergy status to other antibiotic agents; Z91.040 Latex allergy status; Z90.49 Acquired absence of other specified parts of digestive tract; Z90.89 Acquired absence of other organs
CPT/HCPCS: 36415; 74176; 80053; 81003; 81015; 83735; 85025; 87086; 96361; 96374; 99284; A9270-GY; J1885

== ENCOUNTER 2019-11-04 10:32 | Emergency (ER) | payer BC ==
[2019-11-04 10:40] VITALS: BP 117/67
--- NOTE | 2019-11-04 10:42 | UC ---
FLU HPI - History of Current Complaint Chief Complaint: UCGeneralIllness Stated Complaint: FLU LIKE SYMPTOMS Time Seen by Provider: 11/04/19 10:41 Pain Intensity: 4 - Allergy/Home Medications Allergies/Adverse Reactions: Allergies Allergy/AdvReac Type Severity Reaction Status Date / Time latex Allergy Severe Hives, Verified 11/04/19 10:40 ITCHING bee venom protein (honey bee) Allergy Airway Verified 11/04/19 10:40 Obstruction amoxicillin AdvReac Severe Vomiting Verified 11/04/19 10:40 hydromorphone [From Dilaudid] AdvReac Severe Hallucinati Verified 11/04/19 10:40 ons morphine AdvReac Severe Hallucinati Verified 11/04/19 10:40 ons PMH/Surg Hx/FS Hx/Imm Hx - Additional Past Medical History Additional PMH: ADHD Cardiovascular History: Cardiac Disease, Hypertension Respiratory History: COPD - Surgical History Surgical History: Yes Surgery Procedure, Year, and Place: LT SHOULDER SURGERY X3. APPENDECTOMY. HYSTERECTOMY - left ovary intact. Cardiac Cath 10 years ago - Family History Known Family History: Positive: Hypertension, Non-Contributory Negative: Renal Disease - no fhx of kidney stones - Social History Lives: With Family Alcohol Use: Rare Substance Use Type: None Smoking Status (MU): Light Every Day Tobacco Smoker Amount Used/How Often: approx 6 cigarettes a day. smoking for 20 years Review of Systems All Other Systems Reviewed And Are Negative: No Constitutional: Positive: Fever Skin: Positive: Negative Eyes: Positive: Negative ENT: Positive: Negative Respiratory: Positive: Cough Cardiovascular: Positive: Negative Gastrointestinal: Positive: Diarrhea Genitourinary: Positive: Negative Neurovascular: Positive: Negative Neurological: Positive: Headache Psychological: Positive: Negative Physical Exam - Summary Physical Exam Summary: GENERAL: NAD. WDWN. No pain distress. SKIN: No rashes, sores, lesions, or open wounds. HEENT: Head: AT/NC Eyes: EOM intact. Conjunctiva clear without inflammation or discharge. Ears: Hearing grossly normal. TMs intact, no bulging, erythema, or edema. Nose: Nasal mucosa pink and moist. NTTP maxillary and frontal sinus. Throat: Posterior oropharynx without exudates, erythema, or tonsillar enlargement. Uvula midline. NECK: Supple. Nontender. No lymphadenopathy. CHEST: CTAB. No r/r/w. No accessory muscle use. Breathing comfortably and in no distress. CV: RRR. Pulses intact. Cap refill <2seconds ABDOMEN: Soft. NTTP. No distention or guarding. No organomegaly. No CVA tenderness. Bowel sounds present NEURO: Alert. PSYCH: Age appropriate behavior. Triage Information Reviewed: Yes Vital Signs: Initial Vital Signs Temp 97.4 F 11/04/19 10:37 Pulse 69 11/04/19 10:37 Resp 18 11/04/19 10:37 BP 117/67 11/04/19 10:37 Pulse Ox 100 11/04/19 10:37 Vital Signs Reviewed: Yes Discharge ED - Discharge Plan Referrals: Alvin uCrran NP [Primary Care Provider] -
[2019-11-04 11:20] LABS: Influenza A Molecular NEGATIVE (Negative); Influenza B Molecular NEGATIVE (Negative)
--- NOTE | 2019-11-04 11:43 | UC ---
Throat Pain/Nasal Larry HPI - HPI Summary HPI Summary: 49-year-old woman comes in with a chief complaint of frontal headache and rhinorrhea and fever. Started in the last 1 day. No complaint of any body aches. Patient does have a cough but she is a smoker and she reports is her typical smoker's cough. She did take [id number] medication which did improve her symptoms some. No sore throat. - History of Current Complaint Chief Complaint: UCGeneralIllness Stated Complaint: FLU LIKE SYMPTOMS Time Seen by Provider: 11/04/19 10:41 Pain Intensity: 4 - Allergies/Home Medications Allergies/Adverse Reactions: Allergies Allergy/AdvReac Type Severity Reaction Status Date / Time latex Allergy Severe Hives, Verified 11/04/19 10:40 ITCHING bee venom protein (honey bee) Allergy Airway Verified 11/04/19 10:40 Obstruction amoxicillin AdvReac Severe Vomiting Verified 11/04/19 10:40 hydromorphone [From Dilaudid] AdvReac Severe Hallucinati Verified 11/04/19 10:40 ons morphine AdvReac Severe Hallucinati Verified 11/04/19 10:40 ons Home Medications: Home Medications Fluticasone-Salmeterol 500-50* [Advair Diskus 500-50*] 1 puff PO DAILY 11/04/19 [History Confirmed 11/04/19] PMH/Surg Hx/FS Hx/Imm Hx Previously Healthy: Yes - ADD Cardiovascular History: Hypertension Respiratory History: Asthma - Surgical History Surgical History: Yes Surgery Procedure, Year, and Place: LT SHOULDER SURGERY X3. APPENDECTOMY. HYSTERECTOMY - left ovary intact. Cardiac Cath 10 years ago - Family History Known Family History: Positive: Hypertension, Non-Contributory Negative: Renal Disease - no fhx of kidney stones - Social History Alcohol Use: Rare Substance Use Type: None Smoking Status (MU): Light Every Day Tobacco Smoker Amount Used/How Often: approx 6 cigarettes a day. smoking for 20 years Review of Systems All Other Systems Reviewed And Are Negative: Yes Constitutional: Positive: Fever, Other - SEE HPI Skin: Positive: Negative Eyes: Positive: Negative ENT: Positive: Nasal Discharge, Sinus Congestion Respiratory: Positive: Cough, Other - SEE HPI Cardiovascular: Positive: Negative Gastrointestinal: Positive: Negative Motor: Positive: Negative Neurovascular: Positive: Negative Musculoskeletal: Positive: Negative Neurological: Positive: Headache Psychological: Positive: Negative Is Patient Immunocompromised?: No Physical Exam Triage Information Reviewed: Yes Appearance: Well-Appearing, No Pain Distress, Well-Nourished Vital Signs: Initial Vital Signs Temp 97.4 F 11/04/19 10:37 Pulse 69 11/04/19 10:37 Resp 18 11/04/19 10:37 BP 117/67 11/04/19 10:37 Pulse Ox 100 11/04/19 10:37 Vital Signs Reviewed: Yes Eye Exam: Normal Eyes: Positive: Conjunctiva Clear ENT: Positive: Pharynx normal, Nasal congestion, TMs normal Neck: Positive: Supple Respiratory: Positive: Lungs clear, Normal breath sounds, No respiratory distress Cardiovascular: Positive: RRR Musculoskeletal: Positive: Strength Intact, ROM Intact Neurological: Positive: Alert, Muscle Tone Normal Psychological: Positive: Age Appropriate Behavior Skin Exam: Normal Throat Pain/Nasal Course/Dx - Course Course Of Treatment: DISCUSSED VIRAL VERSES BACTERIAL INFECTIONS AND THE ROLE OF ANTIBIOTICS. THE PATIENT PREFERS TO BE ON ANTIBIOTICS AT THIS TIME. - Differential Dx/Diagnosis Provider Diagnosis: Upper respiratory infection Discharge ED - Sign-Out/Discharge Documenting (check all that apply): Patient Departure All imaging exams completed and their final reports reviewed: No Studies - Discharge Plan Condition: Stable Disposition: HOME Prescriptions: DOXYcycline CAP(*) [DOXYcycline 100MG CAP(*)] 100 mg PO BID #20 cap Patient Education Materials: Upper Respiratory Infection (ED) Referrals: Alvin Curran, LEAD NURSE [Primary Care Provider] - Additional Instructions: FOLLOW UP WITH YOUR DOCTOR IF NOT COMPLETELY IMPROVED. GET REEVALUATED SOONER IF NOT IMPROVED OR WORSE OR ANY QUESTIONS OR CONCERNS. - Billing Disposition and Condition Condition: STABLE Disposition: Home
== END 2019-11-04 11:45 | disposition home or self-care (01) ==
LOC: UCEAST 10:32
DX: J06.9 Acute upper respiratory infection, unspecified (principal); I10 Essential (primary) hypertension; J45.909 Unspecified asthma, uncomplicated; F17.210 Nicotine dependence, cigarettes, uncomplicated; Z91.040 Latex allergy status; Z91.030 Bee allergy status; Z88.0 Allergy status to penicillin; Z88.5 Allergy status to narcotic agent; Z79.899 Other long term (current) drug therapy
CPT/HCPCS: 99212; G0463